=== PATIENT | female | born 1950 | race African-American/Black ===

== ENCOUNTER 2022-08-07 13:58 | Inpatient (IN) | payer MEDICARE, MEDICAID ==
[~2022-08-07] VITALS: Ht 177.8 cm; Wt 60.2 kg
[~2022-08-07 13:58] MED LIST: ATEN-60 PO; BUSP5TAB51 PO; CARB200T4 PO; LEVO75TA6 PO; PHEN100C PO
[2022-08-07 15:27] LABS: Hemoglobin 10.2 g/dL (12.2-16.2); Red Cell Distribution Width 14.5 % (11.8-14.3)
[2022-08-07 15:28] LABS: Hematocrit 30.8 % (36.0-46.0); Mean Corpuscular Hemoglobin 31.7 pg (28.0-32.0); Mean Corpuscular Hgb Conc. 33.2 g/dL (32.0-36.0); Mean Corpuscular Volume 95.7 fL (80.0-100.0); Red Blood Cells 3.22 10^6/uL (4.0-5.20)
[2022-08-07 15:43] LABS: Albumin 3.1 g/dL (3.4-5.0); Potassium 3.4 mmol/L (3.5-5.1)
[2022-08-07 15:47] LABS: BUN/Creatinine Ratio 38.9; Bilirubin, Total 0.5 mg/dL (0.2-1.0); Total Protein 5.8 g/dL (6.4-8.2)
[2022-08-07 16:40] LABS: Band Neutrophils % (manual) 0; Basophils % (manual) 0 (0.0-2.0); Blast Cells 0; Eosinophils % (manual) 0 (0-7); Metamyelocytes % 0; Myelocytes % 0; Promyelocytes % 0; Reactive Lymphocytes 0; White Blood Cell 1.4 10^3/uL (4.4-10.8)
[2022-08-07 16:42] LABS: Lymphocytes % (manual) 20 (10.0-50.0); Monocytes % (manual) 12 (0-12)
[2022-08-07] MEDS ORDERED: PIPERACILLIN-TAZOB 3.375GM 100 ML IV ONE (19:30)
[2022-08-07] MEDS ORDERED: FUROSEMIDE 40 MG/4 ML VIAL IV ONE (20:45)
[2022-08-07] MEDS ORDERED: ALBUMIN 25% 50 ML IV ONE (20:45)
[2022-08-07] MEDS ORDERED: MORPHINE SULFATE INJ 2 MG/ml SYRG IV PRN (20:45)
[2022-08-07] MEDS ORDERED: ONDANSETRON HCL 4 MG/2 ML VIAL IV PRN (20:45)
[2022-08-07] MEDS ORDERED: NITROGLYCERIN 0.4 MG SL TAB SL PRN (20:45)
[2022-08-07] MEDS ORDERED: ACETAMINOPHEN 325 MG TAB PO PRN (20:45)
[2022-08-07] MEDS: CARVEDILOL 3.125 MG TAB PO SCH (22:00)
[2022-08-07 22:03] LABS: Urine Bacteria MANY /hpf (None Seen); Urine Blood 3+ /uL (Negative); Urine Specific Gravity 1.023 (1.001-1.035); Urine WBC 4 /hpf (0 - 5)
[2022-08-07] MEDS: busPIRone HCL 10 MG TAB PO SCH (23:37)
[2022-08-07] MEDS: levETIRAcetam 500 MG TAB PO SCH (23:38)
[2022-08-08 02:08] VITALS: BP 118/64
[2022-08-08 04:56] VITALS: BP 101/54
[2022-08-08] MEDS: LEVOTHYROXINE SODIUM 25 MCG TAB PO SCH (06:12)
[2022-08-08 07:35] LABS: Albumin 3.1 g/dL (3.4-5.0); Calcium 7.6 mg/dL (8.5-10.1)
[2022-08-08 07:38] LABS: BUN/Creatinine Ratio 43.5
[2022-08-08 07:39] LABS: Bilirubin, Total 0.5 mg/dL (0.2-1.0); Total Protein 5.5 g/dL (6.4-8.2)
[2022-08-08 07:45] LABS: Basophils # (auto) 0 10 ^3/uL (0-0.2); Eosinophils # (auto) 0 10 ^3/uL (0-0.8); Lymphocytes # (auto) 0.2 10 ^3/uL (0.4-5.4); Lymphocytes % (auto) 17.9 % (10.0-50.0); Monocytes # (auto) 0.1 10 ^3/uL (0-1.3); Neutrophils # (auto) 0.9 10 ^3/uL (1.6-8.6)
[2022-08-08 07:47] LABS: Basophils % (auto) 0.3 % (0.0-2.0); Eosinophils % (auto) 0.5 % (0.0-7.0); Hematocrit 30.4 % (36.0-46.0); Hemoglobin 9.8 g/dL (12.2-16.2); Mean Corpuscular Hemoglobin 32.1 pg (28.0-32.0); Mean Corpuscular Hgb Conc. 32.2 g/dL (32.0-36.0); Mean Corpuscular Volume 99.7 fL (80.0-100.0); Monocytes % (auto) 9.3 % (0.0-12.0); Red Blood Cells 3.05 10^6/uL (4.0-5.20); Red Cell Distribution Width 14.6 % (11.8-14.3)
[2022-08-08 07:49] LABS: Nucleated Red Blood Cells % 3.3 %; White Blood Cell 1.2 10^3/uL (4.4-10.8)
[2022-08-08 08:02] LABS: Potassium 2.9 mmol/L (3.5-5.1)
[2022-08-08] MEDS ORDERED: POTASSIUM CHL 20 Meq TABLET PO ONE (08:45)
[2022-08-08] MEDS ORDERED: POTASSIUM CHLORIDE 40 MEQ, LIDOCAINE 1% (LOCAL ANESTH.) 4 ML in SODIUM CHL 0.9% 250 ML IV ONE (08:45)
[2022-08-08 09:00] VITALS: BP 80/37
[2022-08-08] MEDS: CARVEDILOL 3.125 MG TAB PO SCH ×2 (10:00→22:00)
[2022-08-08] MEDS ORDERED: ENOXAPARIN SOD 40 MG/0.4 ML SYRINGE SC SCH ×2 (10:00)
[2022-08-08] MEDS: levETIRAcetam 500 MG TAB PO SCH ×2 (11:31→22:04)
[2022-08-08] MEDS: busPIRone HCL 10 MG TAB PO SCH ×2 (11:31→22:05)
[2022-08-08] MEDS: ASPirin 81 mg TAB PO SCH (11:32)
[2022-08-08] MEDS: PANTOPRAZOLE 40 MG TAB PO SCH (11:32)
[2022-08-08] MEDS ORDERED: SODIUM CHLORIDE 0.9% 1,000 ML IV SCH (12:45)
[2022-08-08 13:00] VITALS: BP 87/57
[2022-08-08] MEDS ORDERED: cefTRIAXone 1GM/50ML D5W 50 ML IV ONE (13:00)
[2022-08-08 13:54] LABS: % Iron Saturation 75.2 % (15-50)
[2022-08-08 14:01] LABS: Ferritin > 1650.0 ng/mL (10-322)
[2022-08-08 14:16] LABS: Thyroid Stimulating Hormone 3.29 uIU/mL (0.358-3.74)
[2022-08-08 17:29] VITALS: BP 81/57
[2022-08-08] MEDS ORDERED: OMEP-260 PO (20:57)
[2022-08-08] MEDS ORDERED: ZONI100C43 PO (20:57)
[2022-08-08] MEDS ORDERED: LEVE100012 PO (20:57)
[2022-08-08] MEDS ORDERED: CARV6.2551 PO (20:57)
[2022-08-08] MEDS ORDERED: ALEN70TA74 PO (20:57)
[2022-08-08] MEDS ORDERED: CHOL20007 PO (20:59)
[2022-08-08] MEDS ORDERED: CALC-440 PO (21:03)
[2022-08-08 21:37] VITALS: BP 86/51
[2022-08-09 04:32] VITALS: BP 87/60
[2022-08-09] MEDS: LEVOTHYROXINE SODIUM 25 MCG TAB PO SCH (06:39)
[2022-08-09 07:20] LABS: Hemoglobin 10.2 g/dL (12.2-16.2)
[2022-08-09 07:21] LABS: Hematocrit 31.6 % (36.0-46.0); Mean Corpuscular Hemoglobin 31.8 pg (28.0-32.0); Mean Corpuscular Hgb Conc. 32.2 g/dL (32.0-36.0); Mean Corpuscular Volume 98.9 fL (80.0-100.0); Red Blood Cells 3.19 10^6/uL (4.0-5.20); Red Cell Distribution Width 14.8 % (11.8-14.3)
[2022-08-09 07:39] LABS: % Iron Saturation 81.5 % (15-50); Calcium 7.7 mg/dL (8.5-10.1); Potassium 3.4 mmol/L (3.5-5.1)
[2022-08-09 07:41] LABS: White Blood Cell 1.5 10^3/uL (4.4-10.8)
[2022-08-09 07:42] LABS: BUN/Creatinine Ratio 36.6; Band Neutrophils % (manual) 0; Basophils % (manual) 0 (0.0-2.0); Blast Cells 0; Metamyelocytes % 0; Myelocytes % 0; Promyelocytes % 0; Reactive Lymphocytes 0
[2022-08-09 07:45] LABS: Bilirubin, Total 0.3 mg/dL (0.2-1.0); Total Protein 5.5 g/dL (6.4-8.2)
[2022-08-09 08:25] LABS: Eosinophils % (manual) 1 (0-7); Lymphocytes % (manual) 14 (10.0-50.0); Monocytes % (manual) 6 (0-12)
[2022-08-09 09:00] VITALS: BP 86/55
[2022-08-09 09:11] LABS: Hepatitis B Surface Antibody Negative (Negative)
[2022-08-09] MEDS: ASPirin 81 mg TAB PO SCH (09:34)
[2022-08-09] MEDS: busPIRone HCL 10 MG TAB PO SCH ×2 (09:35→22:13)
[2022-08-09] MEDS: levETIRAcetam 500 MG TAB PO SCH ×2 (09:36→22:12)
[2022-08-09] MEDS: PANTOPRAZOLE 40 MG TAB PO SCH (09:36)
[2022-08-09] MEDS: CARVEDILOL 3.125 MG TAB PO SCH ×2 (10:00→22:00)
[2022-08-09 11:35] LABS: Hepatitis C Antibody Reactive (Negative)
[2022-08-09] MEDS: cefTRIAXone 1GM/50ML D5W 50 ML IV SCH (11:58)
[2022-08-09 13:00] VITALS: BP 89/54
[2022-08-09 17:00] VITALS: BP 96/57
[2022-08-09] MEDS ORDERED: D5W/SOD CHL 0.45% 1,000 ML IV ONE (19:00)
[2022-08-09] MEDS ORDERED: POTASSIUM EFFERVESENT TAB 25 MEQ PO ONE (19:00)
[2022-08-09 22:00] VITALS: BP 86/49
[2022-08-09] MEDS ORDERED: MIDAZOLAM HCL 2MG/2ML 2ml VIAL (1mg/ml) IV PRN (22:30)
[2022-08-10 05:00] VITALS: BP 103/57
[2022-08-10 05:53] LABS: Basophils # (auto) 0 10 ^3/uL (0-0.2); Eosinophils # (auto) 0 10 ^3/uL (0-0.8); Lymphocytes # (auto) 0.4 10 ^3/uL (0.4-5.4); Mean Corpuscular Hemoglobin 32.4 pg (28.0-32.0); Monocytes # (auto) 0.2 10 ^3/uL (0-1.3); Neutrophils # (auto) 0.7 10 ^3/uL (1.6-8.6)
[2022-08-10 05:55] LABS: Basophils % (auto) 0.2 % (0.0-2.0); Eosinophils % (auto) 0.7 % (0.0-7.0); Hemoglobin 9.8 g/dL (12.2-16.2); Lymphocytes % (auto) 30.2 % (10.0-50.0); Mean Corpuscular Hgb Conc. 33.8 g/dL (32.0-36.0); Mean Corpuscular Volume 95.9 fL (80.0-100.0); Monocytes % (auto) 13.7 % (0.0-12.0); Neutrophils % (auto) 55.2 % (37.0-80.0); Red Blood Cells 3.03 10^6/uL (4.0-5.20); Red Cell Distribution Width 14.6 % (11.8-14.3)
[2022-08-10] MEDS: LEVOTHYROXINE SODIUM 25 MCG TAB PO SCH (06:19)
[2022-08-10 06:23] LABS: Nucleated Red Blood Cells % 3.7 %
[2022-08-10 06:25] LABS: White Blood Cell 1.3 10^3/uL (4.4-10.8)
[2022-08-10 07:30] VITALS: BP 97/36
[2022-08-10 08:28] VITALS: BP 95/56
[2022-08-10] MEDS: CARVEDILOL 3.125 MG TAB PO SCH ×2 (09:21→22:20)
[2022-08-10] MEDS: cefTRIAXone 1GM/50ML D5W 50 ML IV SCH (09:25)
[2022-08-10] MEDS: ASPirin 81 mg TAB PO SCH (09:30)
[2022-08-10] MEDS: levETIRAcetam 500 MG TAB PO SCH ×2 (09:30→22:19)
[2022-08-10] MEDS: busPIRone HCL 10 MG TAB PO SCH ×2 (09:31→22:19)
[2022-08-10] MEDS ORDERED: ISOSORBIDE MONONITRATE ER 60 MG TAB PO SCH (10:00)
[2022-08-10] MEDS ORDERED: VANCOMYCIN HCL 125MG/5ML ORAL SOL PO ONE (14:45)
[2022-08-10 17:00] VITALS: BP 115/69
[2022-08-10] MEDS: VANCOMYCIN HCL 125MG/5ML ORAL SOL PO SCH ×2 (17:36→22:18)
[2022-08-10 22:00] VITALS: BP 111/69
[2022-08-11 05:09] VITALS: BP 109/69
[2022-08-11] MEDS: VANCOMYCIN HCL 125MG/5ML ORAL SOL PO SCH ×4 (05:35→22:16)
[2022-08-11] MEDS: LEVOTHYROXINE SODIUM 25 MCG TAB PO SCH (06:14)
[2022-08-11 07:30] VITALS: BP 109/69
[2022-08-11 07:39] LABS: Hematocrit 28.1 % (36.0-46.0); Hemoglobin 9.5 g/dL (12.2-16.2); Mean Corpuscular Hemoglobin 32.3 pg (28.0-32.0); Mean Corpuscular Hgb Conc. 33.7 g/dL (32.0-36.0); Red Blood Cells 2.94 10^6/uL (4.0-5.20)
[2022-08-11 07:42] LABS: Mean Corpuscular Volume 95.6 fL (80.0-100.0); Red Cell Distribution Width 14.8 % (11.8-14.3)
[2022-08-11 08:04] LABS: BUN/Creatinine Ratio 37.9
[2022-08-11 08:24] LABS: White Blood Cell 1.5 10^3/uL (4.4-10.8)
[2022-08-11 08:26] LABS: Basophils % (manual) 0 (0.0-2.0); Blast Cells 0; Eosinophils % (manual) 0 (0-7); Metamyelocytes % 0; Myelocytes % 0; Promyelocytes % 0; Reactive Lymphocytes 0
[2022-08-11 08:41] LABS: Band Neutrophils % (manual) 7; Lymphocytes % (manual) 35 (10.0-50.0); Monocytes % (manual) 7 (0-12)
[2022-08-11 09:00] VITALS: BP 117/69
[2022-08-11] MEDS: cefTRIAXone 1GM/50ML D5W 50 ML IV SCH (09:01)
[2022-08-11] MEDS: levETIRAcetam 500 MG TAB PO SCH ×2 (09:02→22:16)
[2022-08-11] MEDS: ASPirin 81 mg TAB PO SCH (09:02)
[2022-08-11] MEDS: FLORASTOR (S. BOULARDII) 250 MG CAP PO SCH (09:02)
[2022-08-11] MEDS: busPIRone HCL 10 MG TAB PO SCH ×2 (09:03→22:17)
[2022-08-11] MEDS: CARVEDILOL 3.125 MG TAB PO SCH ×2 (09:08→22:00)
[2022-08-11 13:00] VITALS: BP 111/69
[2022-08-11 17:00] VITALS: BP 103/60
[2022-08-11 22:00] VITALS: BP 98/46
[2022-08-12] VITALS (8 sets, daily range): BP systolic 78–138; BP diastolic 40–68
[2022-08-12] MEDS: VANCOMYCIN HCL 125MG/5ML ORAL SOL PO SCH ×4 (06:01→22:06)
[2022-08-12] MEDS: LEVOTHYROXINE SODIUM 25 MCG TAB PO SCH (07:02)
[2022-08-12] MEDS: CARVEDILOL 3.125 MG TAB PO SCH ×2 (10:00→22:07)
[2022-08-12] MEDS: FLORASTOR (S. BOULARDII) 250 MG CAP PO SCH (10:30)
[2022-08-12] MEDS: cefTRIAXone 1GM/50ML D5W 50 ML IV SCH (10:30)
[2022-08-12] MEDS: busPIRone HCL 10 MG TAB PO SCH ×2 (10:32→22:06)
[2022-08-12] MEDS: ASPirin 81 mg TAB PO SCH (10:32)
[2022-08-12] MEDS: SODIUM CHLORIDE 0.9% 1,000 ML IV SCH (15:24)
[2022-08-13] MEDS: SODIUM CHLORIDE 0.9% 1,000 ML IV SCH ×3 (01:17→20:54)
[2022-08-13 05:31] VITALS: BP 123/65
[2022-08-13] MEDS: VANCOMYCIN HCL 125MG/5ML ORAL SOL PO SCH ×4 (06:06→22:04)
[2022-08-13] MEDS: LEVOTHYROXINE SODIUM 25 MCG TAB PO SCH (06:42)
[2022-08-13 09:00] VITALS: BP 98/58
[2022-08-13] MEDS: FLORASTOR (S. BOULARDII) 250 MG CAP PO SCH (09:37)
[2022-08-13] MEDS: cefTRIAXone 1GM/50ML D5W 50 ML IV SCH (09:37)
[2022-08-13] MEDS: ASPirin 81 mg TAB PO SCH (09:38)
[2022-08-13] MEDS: busPIRone HCL 10 MG TAB PO SCH ×2 (09:39→22:04)
[2022-08-13] MEDS: CARVEDILOL 3.125 MG TAB PO SCH ×2 (09:39→22:02)
[2022-08-13 17:00] VITALS: BP 119/61
[2022-08-13 22:00] VITALS: BP 125/70
[2022-08-13] MEDS: LACOSAMIDE 50 MG TAB PO SCH (22:10)
[2022-08-13 23:02] VITALS: BP 108/57
[2022-08-14] VITALS (7 sets, daily range): BP systolic 104–110; BP diastolic 54–67
[2022-08-14] MEDS: LEVOTHYROXINE SODIUM 25 MCG TAB PO SCH (06:03)
[2022-08-14] MEDS: VANCOMYCIN HCL 125MG/5ML ORAL SOL PO SCH ×3 (06:03→17:41)
[2022-08-14] MEDS: SODIUM CHLORIDE 0.9% 1,000 ML IV SCH ×2 (06:45→15:56)
[2022-08-14] MEDS: ASPirin 81 mg TAB PO SCH (08:56)
[2022-08-14] MEDS: LACOSAMIDE 50 MG TAB PO SCH (08:56)
[2022-08-14] MEDS: FLORASTOR (S. BOULARDII) 250 MG CAP PO SCH (08:56)
[2022-08-14] MEDS: cefTRIAXone 1GM/50ML D5W 50 ML IV SCH (08:56)
[2022-08-14] MEDS: busPIRone HCL 10 MG TAB PO SCH (08:57)
[2022-08-14] MEDS: CARVEDILOL 3.125 MG TAB PO SCH (09:04)
== END 2022-08-14 20:00 | DRG 660 ==
LOC: ER 13:58 → TELE 20:43 → TELE-WESTW 08-08 01:54
PROVIDERS: ADMIT Nurse Practitioner; ATTEND Family Medicine
PROC: 4B02XSZ Measurement of Cardiac Pacemaker, External Approach (ICD-10-PCS; principal; 2022-08-09)
DX: D61.818 Other pancytopenia (principal); G93.41 Metabolic encephalopathy; A04.72 Enterocolitis due to Clostridium difficile, not specified as recurrent; N17.9 Acute kidney failure, unspecified; R64 Cachexia; E43 Unspecified severe protein-calorie malnutrition; I95.9 Hypotension, unspecified; I13.0 Hypertensive heart and chronic kidney disease with heart failure and stage 1 through stage 4 chronic kidney disease, or unspecified chronic kidney disease; E87.0 Hyperosmolality and hypernatremia; I50.9 Heart failure, unspecified; G40.409 Other generalized epilepsy and epileptic syndromes, not intractable, without status epilepticus; X58.XXXA Exposure to other specified factors, initial encounter; R62.7 Adult failure to thrive; S90.121A Contusion of right lesser toe(s) without damage to nail, initial encounter; S90.31XA Contusion of right foot, initial encounter; B96.20 Unspecified Escherichia coli [E. coli] as the cause of diseases classified elsewhere; E78.5 Hyperlipidemia, unspecified; Z20.822 Contact with and (suspected) exposure to COVID-19; M81.0 Age-related osteoporosis without current pathological fracture; N18.9 Chronic kidney disease, unspecified; K21.9 Gastro-esophageal reflux disease without esophagitis; E03.9 Hypothyroidism, unspecified; E87.6 Hypokalemia; I89.0 Lymphedema, not elsewhere classified; Z90.49 Acquired absence of other specified parts of digestive tract; Z68.1 Body mass index [BMI] 19.9 or less, adult; Y93.89 Activity, other specified; Y92.89 Other specified places as the place of occurrence of the external cause; Y99.8 Other external cause status; Z87.891 Personal history of nicotine dependence; Z95.0 Presence of cardiac pacemaker; R74.01 Elevation of levels of liver transaminase levels
CPT/HCPCS: 36415; 71045; 73630; 73700; 74176; 76705; 80048; 80053; 81001; 82140; 82607; 82728; 83010; 83540; 83550; 83605; 83615; 83880; 84436; 84443; 84484; 85007; 85025; 85027; 85045; 86038; 86706; 86803; 87040; 87086; 87088; 87186; 87340; 87493; 93005; 93306; 93925; 93970; 96365; 96366; G0378; J0696; J2001; J2405; J2543

== ENCOUNTER 2023-04-24 21:00 | Inpatient (IN) | payer MEDICARE, MEDICAID ==
[~2023-04-24] VITALS: Ht 167.6 cm; Wt 58.3 kg
[~2023-04-24 21:00] MED LIST changes: +ALEN70TA74 PO; +CALC-440 PO; +CARV6.2551 PO; +CHOL20007 PO; +LEVE100012 PO; +OMEP1CAP70 PO; +ZONI100C43 PO
[2023-04-24] MEDS: NOREPINEPHRINE 8 MG/250ML KIT 250 ML IV SCH ×2 (21:14→23:10)
[2023-04-24] MEDS ORDERED: SODIUM CHLORIDE 0.9% 1,000 ML IV ONE (21:30)
[2023-04-24 21:46] LABS: Basophils # (auto) 0 10 ^3/uL (0-0.2); Eosinophils # (auto) 0 10 ^3/uL (0-0.8); Eosinophils % (auto) 0.2 % (0.0-7.0); Hematocrit 13.6 % (36.0-46.0); Lymphocytes # (auto) 0.1 10 ^3/uL (0.4-5.4); Lymphocytes % (auto) 11.6 % (10.0-50.0); Mean Corpuscular Hemoglobin 29.7 pg (28.0-32.0); Mean Corpuscular Hgb Conc. 32.6 g/dL (32.0-36.0); Mean Corpuscular Volume 91.1 fL (80.0-100.0); Monocytes # (auto) 0 10 ^3/uL (0-1.3); Monocytes % (auto) 4.5 % (0.0-12.0); Neutrophils # (auto) 0.6 10 ^3/uL (1.6-8.6); Neutrophils % (auto) 82.7 % (37.0-80.0); Red Blood Cells 1.49 10^6/uL (4.0-5.20)
[2023-04-24 21:58] LABS: Albumin 2.5 g/dL (3.4-5.0); INR 1.72 (0.9-1.15); Partial Thromboplastin Time 38.9 sec (24.6-33.4); Potassium 3.4 mmol/L (3.5-5.1)
[2023-04-24] MEDS: EPINEPHrine HCL 250 ML IV SCH ×2 (22:00→23:14)
[2023-04-24 22:01] LABS: BUN/Creatinine Ratio 25.2 (10.0-20.0); Bilirubin, Total 0.8 mg/dL (0.2-1.0); Total Protein 5.7 g/dL (6.4-8.2)
[2023-04-24 22:07] LABS: Nucleated Red Blood Cells % 24.3 %
[2023-04-24 22:09] LABS: Hemoglobin 4.4 g/dL (12.2-16.2)
[2023-04-24 22:11] LABS: White Blood Cell 0.7 10^3/uL (4.4-10.8)
[2023-04-24] MEDS ORDERED: ETOMIDATE (2MG/ML) 20ML VIAL IV ONE (22:46)
[2023-04-24] MEDS ORDERED: ROCURONIUM 10MG/ML 10ML VIAL IV ONE (22:46)
[2023-04-24] MEDS ORDERED: MIDAZOLAM HCL 2MG/2ML 2ml VIAL (1mg/ml) ONE (22:50)
[2023-04-24] MEDS ORDERED: NOREPINEPHRINE 8 MG/250ML KIT 250 ML IV ONE (22:52)
[2023-04-24 23:00] VITALS: BP 41/21
[2023-04-24] MEDS ORDERED: EPINEPHrine HCL 1 MG/10 ML SYRG ONE (23:13)
[2023-04-25] VITALS (83 sets, daily range): BP systolic 57–140; BP diastolic 25–86
[2023-04-25 00:26] LABS: Urine Bacteria MANY /hpf (None Seen); Urine Blood 1+ /uL (Negative); Urine Mucus FEW (None Seen); Urine WBC 312 /hpf (0 - 5); Urine WBC Clumps PRESENT /hpf (None Seen)
[2023-04-25] MEDS ORDERED: MIDAZOLAM HCL 5 MG/ML-1ML VIAL IV ONE (00:45)
[2023-04-25] MEDS ORDERED: ROCURONIUM 10MG/ML 10ML VIAL IV ONE (00:45)
[2023-04-25] MEDS ORDERED: ETOMIDATE (2MG/ML) 20ML VIAL IV ONE (00:45)
[2023-04-25] MEDS: MIDAZOLAM DRIP 50 mg/50mL 50 ML IV SCH ×3 (02:15→23:24)
[2023-04-25] MEDS ORDERED: cefTRIAXone 1GM/50ML D5W 50 ML IV ONE (02:30)
[2023-04-25] MEDS ORDERED: VANCOMYCIN 1GM/250ML 250 ML IV ONE (02:30)
[2023-04-25] MEDS ORDERED: PIPERACILLIN-TAZO 4.5GM 100 ML IV ONE (02:30)
[2023-04-25] MEDS ORDERED: SODIUM BICARBONATE 8.4 % INJ 50ML VIAL IV ONE ×2 (02:30→15:07)
[2023-04-25] MEDS ORDERED: methylPREDNISolone SOD SUCC 125 MG/2 ML VL IV ONE (02:30)
[2023-04-25] MEDS ORDERED: MORPHINE SULFATE INJ 2 MG/ml SYRG IV PRN (03:15)
[2023-04-25] MEDS ORDERED: FILGRASTIM(TBO) 480 MCG/0.8 ML SYRG SC ONE (03:15)
[2023-04-25] MEDS ORDERED: ONDANSETRON HCL 4 MG/2 ML VIAL IV PRN (03:15)
[2023-04-25] MEDS ORDERED: ACETAMINOPHEN 325 MG TAB PO PRN (03:15)
[2023-04-25] MEDS ORDERED: NITROGLYCERIN 0.4 MG SL TAB SL PRN (03:15)
[2023-04-25] MEDS ORDERED: D5W/SOD CHL 0.45% 1,000 ML IV SCH (03:15)
[2023-04-25 07:12] LABS: Basophils # (auto) 0 10 ^3/uL (0-0.2); Eosinophils # (auto) 0 10 ^3/uL (0-0.8); Hemoglobin 11.9 g/dL (12.2-16.2); Lymphocytes # (auto) 0.1 10 ^3/uL (0.4-5.4); Monocytes # (auto) 0 10 ^3/uL (0-1.3)
[2023-04-25 07:14] LABS: Basophils % (auto) 1.2 % (0.0-2.0); Hematocrit 35.4 % (36.0-46.0); Lymphocytes % (auto) 14.1 % (10.0-50.0); Mean Corpuscular Hemoglobin 30.6 pg (28.0-32.0); Mean Corpuscular Hgb Conc. 33.6 g/dL (32.0-36.0); Mean Corpuscular Volume 90.9 fL (80.0-100.0); Monocytes % (auto) 5.2 % (0.0-12.0); Neutrophils # (auto) 0.4 10 ^3/uL (1.6-8.6); Neutrophils % (auto) 78.5 % (37.0-80.0); Red Blood Cells 3.89 10^6/uL (4.0-5.20); Red Cell Distribution Width 15.6 % (11.8-14.3)
[2023-04-25 07:23] LABS: Albumin 2.2 g/dL (3.4-5.0); Calcium 6.6 mg/dL (8.5-10.1); Potassium 3.3 mmol/L (3.5-5.1)
[2023-04-25 07:28] LABS: Bilirubin, Total 1.1 mg/dL (0.2-1.0); Total Protein 5.2 g/dL (6.4-8.2)
[2023-04-25 07:30] LABS: Nucleated Red Blood Cells % 43.9 %
[2023-04-25 07:32] LABS: White Blood Cell 0.5 10^3/uL (4.4-10.8)
[2023-04-25] MEDS: NOREPINEPHRINE 8 MG/250ML KIT 250 ML IV SCH ×4 (08:03→23:14)
[2023-04-25] MEDS: PANTOPRAZOLE 40 MG/10 ML VIAL INJ IV SCH (09:59)
[2023-04-25] MEDS: AZITHROMYCIN 500MG/ 250ML 250 ML IV SCH ×2 (10:00→10:04)
[2023-04-25] MEDS: VASOPRESSIN 40 UNITS in D5W 5% 198 ML IV SCH ×4 (11:30→18:58)
[2023-04-25] MEDS: POTASSIUM CHL 20MEQ/100ML 100 ML IV SCH ×2 (11:58→14:22)
[2023-04-25] MEDS ORDERED: FUROSEMIDE 100 MG/10ML VIAL IV ONE (12:15)
[2023-04-25] MEDS: EPINEPHrine HCL 250 ML IV SCH (14:24)
[2023-04-25 15:14] LABS: Hepatitis B Surface Antibody Negative (Negative)
[2023-04-25] MEDS: SODIUM BICARB 50ML SYR 75 ML in D5W/SOD CHL 0.45% 1,000 ML IV SCH ×2 (15:25→18:34)
[2023-04-25] MEDS ORDERED: MEROPENEM 1GM IVPB 100 ML IV ONE (15:30)
[2023-04-25] MEDS ORDERED: VANCOMYCIN PER PHARMACY 0 MG IV SCH (15:30)
[2023-04-25 17:53] LABS: Potassium 3.9 mmol/L (3.5-5.1)
[2023-04-25 18:01] LABS: Calcium 5.9 mg/dL (8.5-10.1)
[2023-04-25] MEDS ORDERED: SODIUM BICARBONATE 8.4% INJ 50ML SYRINGE ONE ×2 (18:34→18:40)
[2023-04-25] MEDS ORDERED: VASOPRESSIN 20 UNIT/ML ONE (18:50)
[2023-04-25] MEDS ORDERED: CALCIUM GLUC 1,000mg/50ml-NS 50 ML IV ONE (19:30)
[2023-04-26] VITALS (106 sets, daily range): BP systolic 74–139; BP diastolic 38–76
[2023-04-26] MEDS: VASOPRESSIN 40 UNITS in D5W 5% 198 ML IV SCH ×7 (00:50→20:50)
[2023-04-26 04:12] LABS: Hematocrit 33.7 % (36.0-46.0); Hemoglobin 11.8 g/dL (12.2-16.2)
[2023-04-26 04:15] LABS: Mean Corpuscular Hemoglobin 30.2 pg (28.0-32.0); Mean Corpuscular Hgb Conc. 34.9 g/dL (32.0-36.0); Mean Corpuscular Volume 86.4 fL (80.0-100.0); Red Cell Distribution Width 15.8 % (11.8-14.3); White Blood Cell 4.1 10^3/uL (4.4-10.8)
[2023-04-26 04:45] LABS: Basophils % (manual) 0 (0.0-2.0); Blast Cells 0; Eosinophils % (manual) 0 (0-7); Promyelocytes % 0; Reactive Lymphocytes 0
[2023-04-26] MEDS: MEROPENEM 500MG IVPB 50 ML IV SCH ×2 (04:47→17:56)
[2023-04-26] MEDS: NOREPINEPHRINE 8 MG/250ML KIT 250 ML IV SCH ×3 (05:10→19:26)
[2023-04-26 05:22] LABS: Albumin 2.1 g/dL (3.4-5.0); Calcium 6.2 mg/dL (8.5-10.1); Potassium 3.8 mmol/L (3.5-5.1)
[2023-04-26 05:26] LABS: BUN/Creatinine Ratio 25.6 (10.0-20.0); Bilirubin, Total 0.6 mg/dL (0.2-1.0); Total Protein 5.2 g/dL (6.4-8.2)
[2023-04-26] MEDS: SODIUM BICARB 50ML SYR 75 ML in D5W/SOD CHL 0.45% 1,000 ML IV SCH ×2 (06:34→23:23)
[2023-04-26 06:58] LABS: Band Neutrophils % (manual) 2; Lymphocytes % (manual) 6 (10.0-50.0); Metamyelocytes % 1; Monocytes % (manual) 4 (0-12); Myelocytes % 3
[2023-04-26] MEDS ORDERED: cefTRIAXone 1GM/50ML D5W 50 ML IV SCH (09:00)
[2023-04-26] MEDS: MIDAZOLAM DRIP 50 mg/50mL 50 ML IV SCH ×2 (09:38→22:49)
[2023-04-26] MEDS ORDERED: FILGRASTIM(TBO) 480 MCG/0.8 ML SYRG SC SCH (10:00)
[2023-04-26] MEDS: PANTOPRAZOLE 40 MG/10 ML VIAL INJ IV SCH (10:54)
[2023-04-26] MEDS ORDERED: Nepro With Carb Steady 1 Liter Bottle GT SCH (12:30)
[2023-04-26] MEDS ORDERED: DEXTROSE (50%) 50ML SYRG IV PRN (12:45)
[2023-04-26] MEDS: ACCU-CHEK COMFORT CURVE STRIP VI SCH (13:29)
[2023-04-26] MEDS: InsuLIN REG 1unit/0.01ml Soln (100units/ml) SC SCH ×2 (13:33→18:17)
[2023-04-26] MEDS ORDERED: VANCOMYCIN 750mg/250ml 250 ML IV ONE (16:00)
[2023-04-26] MEDS ORDERED: LORazepam 2MG/ML-1ML VIAL IV PRN (21:15)
[2023-04-26 22:27] LABS: Cholesterol 81 mg/dL (< 200)
[2023-04-26 22:29] LABS: HDL Cholesterol 40 mg/dL (40-59); LDL Cholesterol 18 mg/dL (< 100); Triglycerides 55 mg/dL (< 150)
[2023-04-26] MEDS: LACOSAMIDE 100 MG in SODIUM CHL 0.9% 50 ML IV SCH (22:50)
[2023-04-26] MEDS: MUPIROCIN 2% OINT 15gm or 22gm FOR MRSA NARES EACHNOSTRI SCH (22:50)
[2023-04-26] MEDS ORDERED: SODIUM BICARBONATE 8.4 % INJ 50ML VIAL IV ONE (23:14)
[2023-04-27] VITALS (108 sets, daily range): BP systolic 84–140; BP diastolic 46–71
[2023-04-27] MEDS: ACCU-CHEK COMFORT CURVE STRIP VI SCH ×4 (00:05→17:52)
[2023-04-27] MEDS: VASOPRESSIN 40 UNITS in D5W 5% 198 ML IV SCH ×8 (00:10→23:30)
[2023-04-27] MEDS: EPINEPHrine HCL 250 ML IV SCH (00:45)
[2023-04-27] MEDS: NOREPINEPHRINE 8 MG/250ML KIT 250 ML IV SCH ×2 (02:50→12:27)
[2023-04-27 03:18] LABS: Red Cell Distribution Width 16.4 % (11.8-14.3)
[2023-04-27 03:19] LABS: Hematocrit 34.3 % (36.0-46.0); Hemoglobin 11.9 g/dL (12.2-16.2); Mean Corpuscular Hgb Conc. 34.6 g/dL (32.0-36.0); Mean Corpuscular Volume 86.8 fL (80.0-100.0); Red Blood Cells 3.95 10^6/uL (4.0-5.20); White Blood Cell 11.6 10^3/uL (4.4-10.8)
[2023-04-27 03:35] LABS: BUN/Creatinine Ratio 25.8 (10.0-20.0); Calcium 6.3 mg/dL (8.5-10.1); Potassium 3.4 mmol/L (3.5-5.1)
[2023-04-27 03:37] LABS: Bilirubin, Total 0.6 mg/dL (0.2-1.0); Total Protein 5.4 g/dL (6.4-8.2)
[2023-04-27 03:47] LABS: Basophils % (manual) 0 (0.0-2.0); Blast Cells 0; Eosinophils % (manual) 0 (0-7); Metamyelocytes % 0; Promyelocytes % 0; Reactive Lymphocytes 0
[2023-04-27] MEDS: MEROPENEM 500MG IVPB 50 ML IV SCH ×2 (04:25→17:11)
[2023-04-27] MEDS: InsuLIN REG 1unit/0.01ml Soln (100units/ml) SC SCH ×4 (05:46→17:52)
[2023-04-27 06:44] LABS: Band Neutrophils % (manual) 66; Lymphocytes % (manual) 9 (10.0-50.0); Monocytes % (manual) 3 (0-12); Myelocytes % 1
[2023-04-27] MEDS: MIDAZOLAM DRIP 50 mg/50mL 50 ML IV SCH ×3 (07:30→20:37)
[2023-04-27] MEDS: SODIUM BICARB 50ML SYR 75 ML in D5W/SOD CHL 0.45% 1,000 ML IV SCH (09:30)
[2023-04-27] MEDS: PANTOPRAZOLE 40 MG/10 ML VIAL INJ IV SCH (09:59)
[2023-04-27] MEDS: LACOSAMIDE 100 MG in SODIUM CHL 0.9% 50 ML IV SCH ×2 (10:47→21:46)
[2023-04-27] MEDS: MUPIROCIN 2% OINT 15gm or 22gm FOR MRSA NARES EACHNOSTRI SCH ×2 (11:46→21:45)
[2023-04-27] MEDS ORDERED: POTASSIUM CHL 20MEQ/100ML 100 ML IV ONE (12:45)
[2023-04-27] MEDS: ALBUMIN 25% 100 ML IV SCH ×2 (15:44→21:44)
[2023-04-27] MEDS: D5W 5% 1,000 ML IV SCH (18:12)
[2023-04-27] MEDS ORDERED: VANCOMYCIN 500 MG in D5W 5% 100 ML IV ONE (23:00)
[2023-04-28] VITALS (103 sets, daily range): BP systolic 84–133; BP diastolic 41–80
[2023-04-28] MEDS: ACCU-CHEK COMFORT CURVE STRIP VI SCH ×5 (00:12→23:35)
[2023-04-28] MEDS: InsuLIN REG 1unit/0.01ml Soln (100units/ml) SC SCH ×5 (00:15→23:34)
[2023-04-28] MEDS: EPINEPHrine HCL 250 ML IV SCH (00:45)
[2023-04-28] MEDS: VASOPRESSIN 40 UNITS in D5W 5% 198 ML IV SCH ×7 (02:50→22:50)
[2023-04-28] MEDS: D5W 5% 1,000 ML IV SCH ×3 (04:13→20:40)
[2023-04-28] MEDS: MEROPENEM 500MG IVPB 50 ML IV SCH ×2 (04:13→16:11)
[2023-04-28 04:24] LABS: Albumin 2.8 g/dL (3.4-5.0); Calcium 6.1 mg/dL (8.5-10.1); Potassium 3.1 mmol/L (3.5-5.1)
[2023-04-28 04:27] LABS: BUN/Creatinine Ratio 27.5 (10.0-20.0); Total Protein 5.3 g/dL (6.4-8.2)
[2023-04-28 04:58] LABS: Hemoglobin 8.8 g/dL (12.2-16.2)
[2023-04-28 05:00] LABS: Hematocrit 24.8 % (36.0-46.0); Mean Corpuscular Hemoglobin 31.4 pg (28.0-32.0); Mean Corpuscular Hgb Conc. 35.4 g/dL (32.0-36.0); Mean Corpuscular Volume 88.7 fL (80.0-100.0); Red Blood Cells 2.79 10^6/uL (4.0-5.20); White Blood Cell 8.6 10^3/uL (4.4-10.8)
[2023-04-28 05:06] LABS: Basophils % (manual) 0 (0.0-2.0); Blast Cells 0; Eosinophils % (manual) 0 (0-7); Myelocytes % 0; Promyelocytes % 0; Reactive Lymphocytes 0
[2023-04-28] MEDS: ALBUMIN 25% 100 ML IV SCH ×3 (05:58→21:40)
[2023-04-28] MEDS: NOREPINEPHRINE 8 MG/250ML KIT 250 ML IV SCH (07:39)
[2023-04-28 09:09] LABS: Band Neutrophils % (manual) 12; Lymphocytes % (manual) 8 (10.0-50.0); Metamyelocytes % 3; Monocytes % (manual) 6 (0-12)
[2023-04-28] MEDS: MIDAZOLAM DRIP 50 mg/50mL 50 ML IV SCH ×2 (10:15→20:15)
[2023-04-28] MEDS: MUPIROCIN 2% OINT 15gm or 22gm FOR MRSA NARES EACHNOSTRI SCH ×2 (10:40→21:41)
[2023-04-28] MEDS: LACOSAMIDE 100 MG in SODIUM CHL 0.9% 50 ML IV SCH ×2 (10:41→21:41)
[2023-04-28] MEDS: PANTOPRAZOLE 40 MG/10 ML VIAL INJ IV SCH (10:41)
[2023-04-28] MEDS: POTASSIUM CHL 20MEQ/100ML 100 ML IV SCH ×2 (12:57→14:31)
[2023-04-29] VITALS (101 sets, daily range): BP systolic 80–146; BP diastolic 46–96
[2023-04-29] MEDS: EPINEPHrine HCL 250 ML IV SCH (00:45)
[2023-04-29] MEDS: VASOPRESSIN 40 UNITS in D5W 5% 198 ML IV SCH ×7 (02:10→22:10)
[2023-04-29] MEDS: D5W 5% 1,000 ML IV SCH ×2 (03:32→08:09)
[2023-04-29] MEDS: MEROPENEM 500MG IVPB 50 ML IV SCH (03:32)
[2023-04-29 04:38] LABS: Red Blood Cells 2.58 10^6/uL (4.0-5.20); White Blood Cell 8.1 10^3/uL (4.4-10.8)
[2023-04-29 04:40] LABS: Mean Corpuscular Hgb Conc. 34.9 g/dL (32.0-36.0); Mean Corpuscular Volume 88.9 fL (80.0-100.0); Red Cell Distribution Width 15.9 % (11.8-14.3)
[2023-04-29 04:55] LABS: Basophils % (manual) 0 (0.0-2.0); Blast Cells 0; Eosinophils % (manual) 0 (0-7); Metamyelocytes % 0; Monocytes % (manual) 0 (0-12); Myelocytes % 0; Promyelocytes % 0; Reactive Lymphocytes 0
[2023-04-29 04:56] LABS: Calcium 6.5 mg/dL (8.5-10.1); Potassium 3.3 mmol/L (3.5-5.1)
[2023-04-29] MEDS: ALBUMIN 25% 100 ML IV SCH ×3 (05:15→21:43)
[2023-04-29] MEDS: InsuLIN REG 1unit/0.01ml Soln (100units/ml) SC SCH ×4 (05:30→23:38)
[2023-04-29] MEDS: ACCU-CHEK COMFORT CURVE STRIP VI SCH ×4 (05:31→23:39)
[2023-04-29] MEDS: MIDAZOLAM DRIP 50 mg/50mL 50 ML IV SCH ×2 (06:15→15:43)
[2023-04-29 08:23] LABS: Band Neutrophils % (manual) 1; Lymphocytes % (manual) 9 (10.0-50.0)
[2023-04-29] MEDS: PANTOPRAZOLE 40 MG/10 ML VIAL INJ IV SCH (09:59)
[2023-04-29] MEDS: MUPIROCIN 2% OINT 15gm or 22gm FOR MRSA NARES EACHNOSTRI SCH ×2 (10:00→21:44)
[2023-04-29] MEDS: LACOSAMIDE 100 MG in SODIUM CHL 0.9% 50 ML IV SCH ×2 (10:08→22:27)
[2023-04-29] MEDS ORDERED: VANCOMYCIN 500 MG in D5W 5% 100 ML IV ONE (14:30)
[2023-04-29] MEDS ORDERED: D5W 5% 1,000 ML IV SCH (14:45)
[2023-04-29] MEDS ORDERED: POTASSIUM EFFERVESENT TAB 25 MEQ GT ONE (14:45)
[2023-04-29] MEDS: SOD CHL 0.45% 1,000 ML IV SCH (16:45)
[2023-04-30] VITALS (96 sets, daily range): BP systolic 84–141; BP diastolic 37–89
[2023-04-30] MEDS: NOREPINEPHRINE 8 MG/250ML KIT 250 ML IV SCH ×2 (00:45→19:21)
[2023-04-30] MEDS: VASOPRESSIN 40 UNITS in D5W 5% 198 ML IV SCH ×5 (01:30→12:13)
[2023-04-30] MEDS: MIDAZOLAM DRIP 50 mg/50mL 50 ML IV SCH ×3 (02:15→22:15)
[2023-04-30 03:29] LABS: Basophils # (auto) 0 10 ^3/uL (0-0.2); Basophils % (auto) 0.3 % (0.0-2.0); Eosinophils # (auto) 0 10 ^3/uL (0-0.8); Hemoglobin 8.3 g/dL (12.2-16.2); Nucleated Red Blood Cells % 0.3 %
[2023-04-30 03:33] LABS: Eosinophils % (auto) 0.4 % (0.0-7.0); Hematocrit 24.4 % (36.0-46.0); Lymphocytes # (auto) 0.3 10 ^3/uL (0.4-5.4); Lymphocytes % (auto) 4.4 % (10.0-50.0); Mean Corpuscular Hemoglobin 30.5 pg (28.0-32.0); Mean Corpuscular Hgb Conc. 34.1 g/dL (32.0-36.0); Mean Corpuscular Volume 89.4 fL (80.0-100.0); Monocytes # (auto) 0.2 10 ^3/uL (0-1.3); Monocytes % (auto) 2.6 % (0.0-12.0); Neutrophils % (auto) 92.3 % (37.0-80.0); Red Blood Cells 2.73 10^6/uL (4.0-5.20); Red Cell Distribution Width 15.9 % (11.8-14.3); White Blood Cell 7.6 10^3/uL (4.4-10.8)
[2023-04-30 03:51] LABS: Albumin 3.1 g/dL (3.4-5.0); Calcium 6.6 mg/dL (8.5-10.1); Potassium 3.7 mmol/L (3.5-5.1)
[2023-04-30 03:54] LABS: Bilirubin, Total 1.7 mg/dL (0.2-1.0); Total Protein 5.4 g/dL (6.4-8.2)
[2023-04-30] MEDS: ALBUMIN 25% 100 ML IV SCH (05:26)
[2023-04-30] MEDS: SOD CHL 0.45% 1,000 ML IV SCH (05:28)
[2023-04-30] MEDS: InsuLIN REG 1unit/0.01ml Soln (100units/ml) SC SCH ×3 (05:32→17:05)
[2023-04-30] MEDS: ACCU-CHEK COMFORT CURVE STRIP VI SCH ×3 (05:32→17:04)
[2023-04-30] MEDS: PANTOPRAZOLE 40 MG/10 ML VIAL INJ IV SCH (11:03)
[2023-04-30] MEDS: LACOSAMIDE 100 MG in SODIUM CHL 0.9% 50 ML IV SCH ×2 (11:03→22:34)
[2023-04-30] MEDS: CEFTRIAXONE SODIUM 2 GM in D5W 5% 100 ML IV SCH (11:03)
[2023-04-30] MEDS: MUPIROCIN 2% OINT 15gm or 22gm FOR MRSA NARES EACHNOSTRI SCH ×2 (11:03→22:00)
[2023-04-30] MEDS: VANCOMYCIN 750mg/250ml 250 ML IV SCH (12:12)
[2023-04-30] MEDS: MIDODRINE HCL 10 MG TAB PO SCH (17:22)
[2023-04-30] MEDS ORDERED: Nepro With Carb Steady 1 Liter Bottle GT SCH (18:15)
[2023-04-30] MEDS: D5W/SOD CHL 0.45%/KCL 20MEQ 1,000 ML IV SCH (20:00)
[2023-04-30] MEDS ORDERED: Jevity 1.2 Cal/Fiber 1 Liter GT SCH (20:00)
[2023-04-30] MEDS ORDERED: IPRATROPIUM BROM 0.5 MG/2.5ML INH SOL NEB ONE (20:45)
[2023-04-30] MEDS ORDERED: ALBUTEROL SULF 2.5 MG/0.5ML(0.5%) NEB SOLN NEB ONE (20:45)
[2023-04-30] MEDS ORDERED: ALBUTEROL SULF 2.5 MG/0.5ML(0.5%) NEB SOLN ONE (20:48)
[2023-04-30] MEDS ORDERED: IPRATROPIUM BROM 0.5 MG/2.5ML INH SOL ONE (20:48)
[2023-05-01] VITALS (80 sets, daily range): BP systolic 92–142; BP diastolic 45–65
[2023-05-01] MEDS: ACCU-CHEK COMFORT CURVE STRIP VI SCH ×5 (00:27→23:45)
[2023-05-01 04:35] LABS: Hemoglobin 9.1 g/dL (12.2-16.2)
[2023-05-01 04:39] LABS: Hematocrit 26.4 % (36.0-46.0); Mean Corpuscular Hgb Conc. 34.4 g/dL (32.0-36.0); Mean Corpuscular Volume 90.1 fL (80.0-100.0); Red Blood Cells 2.93 10^6/uL (4.0-5.20); Red Cell Distribution Width 15.8 % (11.8-14.3); White Blood Cell 9.3 10^3/uL (4.4-10.8)
[2023-05-01 04:50] LABS: Basophils % (manual) 0 (0.0-2.0); Blast Cells 0; Metamyelocytes % 0; Myelocytes % 0; Promyelocytes % 0; Reactive Lymphocytes 0
[2023-05-01 04:54] LABS: Calcium 6.7 mg/dL (8.5-10.1); Potassium 3.7 mmol/L (3.5-5.1)
[2023-05-01] MEDS: InsuLIN REG 1unit/0.01ml Soln (100units/ml) SC SCH ×5 (05:41→23:45)
[2023-05-01] MEDS: MIDODRINE HCL 10 MG TAB PO SCH ×3 (05:50→18:18)
[2023-05-01] MEDS: MIDAZOLAM DRIP 50 mg/50mL 50 ML IV SCH (08:15)
[2023-05-01 09:23] LABS: Band Neutrophils % (manual) 2; Eosinophils % (manual) 1 (0-7); Lymphocytes % (manual) 5 (10.0-50.0); Monocytes % (manual) 2 (0-12)
[2023-05-01] MEDS: PANTOPRAZOLE 40 MG/10 ML VIAL INJ IV SCH (09:28)
[2023-05-01] MEDS: D5W/SOD CHL 0.45%/KCL 20MEQ 1,000 ML IV SCH (09:28)
[2023-05-01] MEDS: CEFTRIAXONE SODIUM 2 GM in D5W 5% 100 ML IV SCH (09:54)
[2023-05-01] MEDS: LACOSAMIDE 100 MG in SODIUM CHL 0.9% 50 ML IV SCH ×2 (11:07→21:47)
[2023-05-01] MEDS: MUPIROCIN 2% OINT 15gm or 22gm FOR MRSA NARES EACHNOSTRI SCH (11:12)
[2023-05-01] MEDS: VANCOMYCIN 750mg/250ml 250 ML IV SCH (12:22)
[2023-05-02] VITALS (18 sets, daily range): BP systolic 96–148; BP diastolic 46–68
[2023-05-02 04:35] LABS: Hemoglobin 10.2 g/dL (12.2-16.2); Mean Corpuscular Hemoglobin 31.1 pg (28.0-32.0); Red Blood Cells 3.28 10^6/uL (4.0-5.20)
[2023-05-02 04:37] LABS: Hematocrit 30.2 % (36.0-46.0); Mean Corpuscular Hgb Conc. 33.7 g/dL (32.0-36.0); Red Cell Distribution Width 16.1 % (11.8-14.3); White Blood Cell 9.3 10^3/uL (4.4-10.8)
[2023-05-02 04:46] LABS: Basophils % (manual) 0 (0.0-2.0); Blast Cells 0; Eosinophils % (manual) 0 (0-7); Metamyelocytes % 0; Myelocytes % 0; Promyelocytes % 0; Reactive Lymphocytes 0
[2023-05-02] MEDS: D5W/SOD CHL 0.45%/KCL 20MEQ 1,000 ML IV SCH (04:54)
[2023-05-02] MEDS: MIDODRINE HCL 10 MG TAB PO SCH ×3 (04:54→17:29)
[2023-05-02 04:58] LABS: BUN/Creatinine Ratio 29.9 (10.0-20.0); Calcium 6.9 mg/dL (8.5-10.1); Potassium 3.6 mmol/L (3.5-5.1)
[2023-05-02] MEDS: ACCU-CHEK COMFORT CURVE STRIP VI SCH ×3 (05:48→17:29)
[2023-05-02] MEDS: InsuLIN REG 1unit/0.01ml Soln (100units/ml) SC SCH ×3 (05:48→17:29)
[2023-05-02 07:57] LABS: Band Neutrophils % (manual) 9; Lymphocytes % (manual) 6 (10.0-50.0); Monocytes % (manual) 3 (0-12)
[2023-05-02] MEDS: PANTOPRAZOLE 40 MG/10 ML VIAL INJ IV SCH (09:16)
[2023-05-02] MEDS: CEFTRIAXONE SODIUM 2 GM in D5W 5% 100 ML IV SCH (09:17)
[2023-05-02] MEDS: LACOSAMIDE 100 MG in SODIUM CHL 0.9% 50 ML IV SCH ×2 (10:18→23:00)
[2023-05-02] MEDS: VANCOMYCIN 750mg/250ml 250 ML IV SCH (10:51)
[2023-05-02] MEDS ORDERED: FUROSEMIDE 20 MG/2 ML VIAL IV ONE (16:30)
[2023-05-02] MEDS ORDERED: POTASSIUM EFFERVESENT TAB 25 MEQ GT ONE (16:30)
[2023-05-03] MEDS: ACCU-CHEK COMFORT CURVE STRIP VI SCH ×4 (00:52→18:48)
[2023-05-03 05:00] VITALS: BP 142/67
[2023-05-03 05:33] LABS: Hemoglobin 10.3 g/dL (12.2-16.2)
[2023-05-03 05:36] LABS: Hematocrit 30.6 % (36.0-46.0); Mean Corpuscular Hemoglobin 30.4 pg (28.0-32.0); Mean Corpuscular Hgb Conc. 33.7 g/dL (32.0-36.0); Mean Corpuscular Volume 90.2 fL (80.0-100.0); Red Blood Cells 3.39 10^6/uL (4.0-5.20); Red Cell Distribution Width 16.1 % (11.8-14.3); White Blood Cell 9.8 10^3/uL (4.4-10.8)
[2023-05-03 05:45] LABS: Basophils % (manual) 0 (0.0-2.0); Blast Cells 0; Eosinophils % (manual) 0 (0-7); Metamyelocytes % 0; Myelocytes % 0; Promyelocytes % 0; Reactive Lymphocytes 0
[2023-05-03 05:53] LABS: BUN/Creatinine Ratio 16.7 (10.0-20.0); Calcium 7.3 mg/dL (8.5-10.1); Potassium 3.4 mmol/L (3.5-5.1)
[2023-05-03] MEDS: InsuLIN REG 1unit/0.01ml Soln (100units/ml) SC SCH ×4 (06:00→18:48)
[2023-05-03] MEDS: MIDODRINE HCL 10 MG TAB PO SCH ×3 (06:00→18:48)
[2023-05-03] MEDS: D5W/SOD CHL 0.45%/KCL 20MEQ 1,000 ML IV SCH (06:03)
[2023-05-03] MEDS: D5W/SOD CHL 0.45%/KCL 40MEQ 1,000 ML IV SCH (07:44)
[2023-05-03] MEDS: POTASSIUM CHL 20MEQ/100ML 100 ML IV SCH ×2 (08:43→11:40)
[2023-05-03 09:00] VITALS: BP 124/61
[2023-05-03 09:07] LABS: Band Neutrophils % (manual) 3; Lymphocytes % (manual) 4 (10.0-50.0); Monocytes % (manual) 3 (0-12)
[2023-05-03] MEDS: CEFTRIAXONE SODIUM 2 GM in D5W 5% 100 ML IV SCH (09:34)
[2023-05-03] MEDS: LACOSAMIDE 100 MG in SODIUM CHL 0.9% 50 ML IV SCH ×2 (09:34→22:03)
[2023-05-03] MEDS: PANTOPRAZOLE 40 MG/10 ML VIAL INJ IV SCH (09:34)
[2023-05-03] MEDS: VANCOMYCIN 1GM/250ML 250 ML IV SCH (11:41)
[2023-05-03 13:00] VITALS: BP 151/62
[2023-05-03 17:00] VITALS: BP 152/66
[2023-05-03 22:00] VITALS: BP 139/53
[2023-05-04] MEDS: ACCU-CHEK COMFORT CURVE STRIP VI SCH ×4 (00:31→18:12)
[2023-05-04] MEDS: D5W/SOD CHL 0.45%/KCL 40MEQ 1,000 ML IV SCH (02:00)
[2023-05-04 05:00] VITALS: BP 154/77
[2023-05-04] MEDS: MIDODRINE HCL 10 MG TAB PO SCH ×3 (05:39→18:22)
[2023-05-04] MEDS: InsuLIN REG 1unit/0.01ml Soln (100units/ml) SC SCH ×4 (05:40→18:00)
[2023-05-04 09:00] VITALS: BP 90/53
[2023-05-04] MEDS: CEFTRIAXONE SODIUM 2 GM in D5W 5% 100 ML IV SCH (09:46)
[2023-05-04] MEDS: PANTOPRAZOLE 40 MG/10 ML VIAL INJ IV SCH (09:47)
[2023-05-04] MEDS: LACOSAMIDE 100 MG in SODIUM CHL 0.9% 50 ML IV SCH ×2 (10:54→22:00)
[2023-05-04] MEDS: VANCOMYCIN 1GM/250ML 250 ML IV SCH (11:58)
[2023-05-04 13:00] VITALS: BP 103/49
[2023-05-04 17:00] VITALS: BP 92/50
[2023-05-04 22:00] VITALS: BP 103/45
[2023-05-04] MEDS: METOCLOPRAMIDE 10 mg/10ml ORAL soln GT SCH (22:00)
[2023-05-05 05:00] VITALS: BP 101/47
[2023-05-05 06:07] LABS: Albumin 2.6 g/dL (3.4-5.0); BUN/Creatinine Ratio 24.7 (10.0-20.0); Calcium 7.4 mg/dL (8.5-10.1); Potassium 4.3 mmol/L (3.5-5.1)
[2023-05-05 06:10] LABS: Bilirubin, Total 0.7 mg/dL (0.2-1.0); Total Protein 5.4 g/dL (6.4-8.2)
[2023-05-05 06:36] LABS: Hematocrit 27.6 % (36.0-46.0); Hemoglobin 9.2 g/dL (12.2-16.2); Mean Corpuscular Hemoglobin 30.4 pg (28.0-32.0); Mean Corpuscular Hgb Conc. 33.2 g/dL (32.0-36.0); Mean Corpuscular Volume 91.5 fL (80.0-100.0); Red Blood Cells 3.02 10^6/uL (4.0-5.20); Red Cell Distribution Width 15.8 % (11.8-14.3); White Blood Cell 6.4 10^3/uL (4.4-10.8)
[2023-05-05 06:44] LABS: Basophils % (manual) 0 (0.0-2.0); Blast Cells 0; Eosinophils % (manual) 0 (0-7); Monocytes % (manual) 0 (0-12); Promyelocytes % 0; Reactive Lymphocytes 0
[2023-05-05 09:00] VITALS: BP 101/40
[2023-05-05 09:19] LABS: Band Neutrophils % (manual) 20; Lymphocytes % (manual) 3 (10.0-50.0); Metamyelocytes % 3; Myelocytes % 3
[2023-05-05 10:42] LABS: Hematocrit 28.9 % (36.0-46.0); Hemoglobin 9.5 g/dL (12.2-16.2)
[2023-05-05] MEDS: InsuLIN REG 1unit/0.01ml Soln (100units/ml) SC SCH ×3 (12:00→18:00)
[2023-05-05] MEDS: LACOSAMIDE 100 MG in SODIUM CHL 0.9% 50 ML IV SCH ×2 (12:05→21:36)
[2023-05-05] MEDS: METOCLOPRAMIDE 10 mg/10ml ORAL soln GT SCH ×2 (12:05→21:37)
[2023-05-05] MEDS: PANTOPRAZOLE 40 MG/10 ML VIAL INJ IV SCH (12:05)
[2023-05-05] MEDS: VANCOMYCIN 1GM/250ML 250 ML IV SCH (12:38)
[2023-05-05] MEDS: ACCU-CHEK COMFORT CURVE STRIP VI SCH ×4 (12:38→18:05)
[2023-05-05] MEDS: MIDODRINE HCL 10 MG TAB GT SCH ×2 (12:39→18:30)
[2023-05-05 13:00] VITALS: BP 95/45
[2023-05-05] MEDS: CEFTRIAXONE SODIUM 2 GM in D5W 5% 100 ML IV SCH (14:32)
[2023-05-05 16:00] LABS: Hematocrit 25.7 % (36.0-46.0); Hemoglobin 8.5 g/dL (12.2-16.2)
[2023-05-05] MEDS: D5W/SOD CHL 0.45%/KCL 40MEQ 1,000 ML IV SCH (18:31)
[2023-05-05 21:32] LABS: Hematocrit 24.3 % (36.0-46.0); Hemoglobin 8.2 g/dL (12.2-16.2)
[2023-05-05 22:00] VITALS: BP 121/53
[2023-05-06] MEDS: HALOPERIDOL LACTATE 5 MG/ML INJ VIAL IM PRN (04:23)
[2023-05-06 05:00] VITALS: BP 101/48
[2023-05-06] MEDS: ACCU-CHEK COMFORT CURVE STRIP VI SCH ×4 (05:37→19:09)
[2023-05-06] MEDS: InsuLIN REG 1unit/0.01ml Soln (100units/ml) SC SCH ×4 (05:43→18:00)
[2023-05-06] MEDS: MIDODRINE HCL 10 MG TAB GT SCH ×3 (05:45→19:14)
[2023-05-06 06:04] LABS: Hematocrit 25.4 % (36.0-46.0); Hemoglobin 8.7 g/dL (12.2-16.2); Mean Corpuscular Hemoglobin 30.8 pg (28.0-32.0); Mean Corpuscular Hgb Conc. 34.2 g/dL (32.0-36.0); Red Blood Cells 2.82 10^6/uL (4.0-5.20); Red Cell Distribution Width 16.1 % (11.8-14.3)
[2023-05-06 06:27] LABS: Basophils % (manual) 0 (0.0-2.0); Blast Cells 0; Eosinophils % (manual) 0 (0-7); Metamyelocytes % 0; Monocytes % (manual) 0 (0-12); Myelocytes % 0; Promyelocytes % 0; Reactive Lymphocytes 0
[2023-05-06 09:00] VITALS: BP 149/70
[2023-05-06 09:05] LABS: INR 1.23 (0.9-1.15); Partial Thromboplastin Time 32.4 sec (24.6-33.4)
[2023-05-06] MEDS: PANTOPRAZOLE 40 MG/10 ML VIAL INJ IV SCH (09:52)
[2023-05-06] MEDS: CEFTRIAXONE SODIUM 2 GM in D5W 5% 100 ML IV SCH (09:52)
[2023-05-06] MEDS: METOCLOPRAMIDE 10 mg/10ml ORAL soln GT SCH (09:53)
[2023-05-06] MEDS: LACOSAMIDE 100 MG in SODIUM CHL 0.9% 50 ML IV SCH ×2 (09:54→22:13)
[2023-05-06] MEDS ORDERED: FUROSEMIDE 20 MG/2 ML VIAL IV ONE (10:15)
[2023-05-06] MEDS ORDERED: POTASSIUM EFFERVESENT TAB 25 MEQ PO ONE (10:15)
[2023-05-06] MEDS: VANCOMYCIN 1GM/250ML 250 ML IV SCH (11:00)
[2023-05-06 11:05] LABS: Band Neutrophils % (manual) 1; Lymphocytes % (manual) 9 (10.0-50.0)
[2023-05-06 13:00] VITALS: BP 122/67
[2023-05-06 17:00] VITALS: BP 98/43
[2023-05-06 22:01] VITALS: BP 111/51
[2023-05-07] MEDS: ACCU-CHEK COMFORT CURVE STRIP VI SCH ×4 (00:10→17:39)
[2023-05-07 05:00] VITALS: BP 126/58
[2023-05-07] MEDS: InsuLIN REG 1unit/0.01ml Soln (100units/ml) SC SCH ×5 (05:05→23:59)
[2023-05-07] MEDS: MIDODRINE HCL 10 MG TAB GT SCH ×3 (06:00→17:38)
[2023-05-07 09:00] VITALS: BP 121/50
[2023-05-07] MEDS ORDERED: POTASSIUM EFFERVESENT TAB 25 MEQ PO SCH (10:00)
[2023-05-07] MEDS ORDERED: FUROSEMIDE 20 MG TAB PO SCH (10:00)
[2023-05-07] MEDS: LACOSAMIDE 100 MG in SODIUM CHL 0.9% 50 ML IV SCH ×2 (11:14→22:12)
[2023-05-07] MEDS: PANTOPRAZOLE 40 MG/10 ML VIAL INJ IV SCH (11:15)
[2023-05-07] MEDS: CEFTRIAXONE SODIUM 2 GM in D5W 5% 100 ML IV SCH (12:22)
[2023-05-07 12:50] VITALS: BP 100/40
[2023-05-07 17:00] VITALS: BP 128/56
[2023-05-07 22:00] VITALS: BP 117/46
[2023-05-08 05:00] VITALS: BP 119/48
[2023-05-08 05:59] LABS: Hematocrit 26.9 % (36.0-46.0); Mean Corpuscular Hemoglobin 30.2 pg (28.0-32.0); Mean Corpuscular Hgb Conc. 33.5 g/dL (32.0-36.0); Mean Corpuscular Volume 90.3 fL (80.0-100.0); Red Blood Cells 2.97 10^6/uL (4.0-5.20); Red Cell Distribution Width 16.4 % (11.8-14.3); White Blood Cell 7.5 10^3/uL (4.4-10.8)
[2023-05-08 06:22] LABS: Basophils % (manual) 0 (0.0-2.0); Blast Cells 0; Eosinophils % (manual) 0 (0-7); Metamyelocytes % 0; Myelocytes % 0; Potassium 4.6 mmol/L (3.5-5.1); Promyelocytes % 0; Reactive Lymphocytes 0
[2023-05-08 06:28] LABS: BUN/Creatinine Ratio 20.9 (10.0-20.0); Calcium 7.7 mg/dL (8.5-10.1)
[2023-05-08] MEDS: ACCU-CHEK COMFORT CURVE STRIP VI SCH ×4 (06:33→18:00)
[2023-05-08] MEDS: MIDODRINE HCL 10 MG TAB GT SCH ×3 (06:33→17:29)
[2023-05-08] MEDS: InsuLIN REG 1unit/0.01ml Soln (100units/ml) SC SCH ×3 (06:37→18:00)
[2023-05-08 07:31] LABS: Band Neutrophils % (manual) 1; Lymphocytes % (manual) 8 (10.0-50.0); Monocytes % (manual) 4 (0-12)
[2023-05-08 08:34] VITALS: BP 108/46
[2023-05-08] MEDS ORDERED: Jevity 1.2 Cal/Fiber 1 Liter GT SCH (11:15)
[2023-05-08] MEDS: PANTOPRAZOLE 40 MG/10 ML VIAL INJ IV SCH (11:32)
[2023-05-08] MEDS: LACOSAMIDE 100 MG in SODIUM CHL 0.9% 50 ML IV SCH ×2 (11:33→22:23)
[2023-05-08] MEDS: CEFTRIAXONE SODIUM 2 GM in D5W 5% 100 ML IV SCH (11:34)
[2023-05-08 13:00] VITALS: BP 133/53
[2023-05-08] MEDS: D5W/SOD CHL 0.2% 1,000 ML IV SCH (13:01)
[2023-05-08 16:54] VITALS: BP 117/66
[2023-05-08] MEDS ORDERED: LORazepam 2MG/ML-1ML VIAL IV ONE (18:00)
[2023-05-08 22:00] VITALS: BP 113/53
[2023-05-09] MEDS: ACCU-CHEK COMFORT CURVE STRIP VI SCH ×4 (00:41→18:00)
[2023-05-09 05:00] VITALS: BP 119/45
[2023-05-09] MEDS: MIDODRINE HCL 10 MG TAB GT SCH ×3 (05:30→18:00)
[2023-05-09] MEDS: InsuLIN REG 1unit/0.01ml Soln (100units/ml) SC SCH ×4 (05:38→18:00)
[2023-05-09] MEDS: D5W/SOD CHL 0.2% 1,000 ML IV SCH (07:15)
[2023-05-09 08:55] VITALS: BP 116/48
[2023-05-09] MEDS: LACOSAMIDE 100 MG in SODIUM CHL 0.9% 50 ML IV SCH ×2 (10:00→22:53)
[2023-05-09] MEDS: PANTOPRAZOLE 40 MG/10 ML VIAL INJ IV SCH (10:00)
[2023-05-09] MEDS: CEFTRIAXONE SODIUM 2 GM in D5W 5% 100 ML IV SCH (10:00)
[2023-05-09 13:00] VITALS: BP 105/54
[2023-05-09] MEDS ORDERED: GLUCAGON EMERG KIT 1mg/1ml IM ONE (13:00)
[2023-05-09 17:00] VITALS: BP 111/70
[2023-05-09 21:02] LABS: BUN/Creatinine Ratio 20.4 (10.0-20.0); Calcium 7.8 mg/dL (8.5-10.1); Potassium 4.1 mmol/L (3.5-5.1)
[2023-05-09 22:00] VITALS: BP 127/57
[2023-05-09 22:01] LABS: Hemoglobin 9.7 g/dL (12.2-16.2); Mean Corpuscular Hemoglobin 30.9 pg (28.0-32.0); Mean Corpuscular Hgb Conc. 33.5 g/dL (32.0-36.0); Mean Corpuscular Volume 92.4 fL (80.0-100.0); Red Blood Cells 3.14 10^6/uL (4.0-5.20); Red Cell Distribution Width 16.3 % (11.8-14.3); White Blood Cell 9.2 10^3/uL (4.4-10.8)
[2023-05-09 22:06] LABS: Basophils % (manual) 0 (0.0-2.0); Blast Cells 0; Eosinophils % (manual) 0 (0-7); Metamyelocytes % 0; Myelocytes % 0; Promyelocytes % 0; Reactive Lymphocytes 0
[2023-05-09 22:43] LABS: Band Neutrophils % (manual) 3; Lymphocytes % (manual) 9 (10.0-50.0); Monocytes % (manual) 1 (0-12)
[2023-05-09] MEDS: ONDANSETRON HCL 4 MG/2 ML VIAL IV PRN (22:53)
[2023-05-10] MEDS: D5W/SOD CHL 0.2% 1,000 ML IV SCH (02:53)
[2023-05-10 05:00] VITALS: BP 101/52
[2023-05-10] MEDS: InsuLIN REG 1unit/0.01ml Soln (100units/ml) SC SCH ×4 (05:23→17:23)
[2023-05-10] MEDS: ACCU-CHEK COMFORT CURVE STRIP VI SCH ×4 (05:23→17:23)
[2023-05-10] MEDS: MIDODRINE HCL 10 MG TAB GT SCH ×2 (06:03→10:37)
[2023-05-10] MEDS: ONDANSETRON HCL 4 MG/2 ML VIAL IV PRN (06:04)
[2023-05-10 07:30] VITALS: BP 121/50
[2023-05-10] MEDS: CEFTRIAXONE SODIUM 2 GM in D5W 5% 100 ML IV SCH (10:36)
[2023-05-10] MEDS: PANTOPRAZOLE 40 MG/10 ML VIAL INJ IV SCH (10:36)
[2023-05-10] MEDS ORDERED: PPN PER PHARMACY 0 ML IV SCH (10:45)
[2023-05-10 12:00] VITALS: BP 121/59
[2023-05-10 13:51] LABS: Albumin 2.7 g/dL (3.4-5.0); Calcium 7.4 mg/dL (8.5-10.1)
[2023-05-10 13:55] LABS: BUN/Creatinine Ratio 22.4 (10.0-20.0); Phosphorus 3.6 mg/dL (2.5-4.90)
[2023-05-10] MEDS: LACOSAMIDE 100 MG in SODIUM CHL 0.9% 50 ML IV SCH ×2 (14:23→21:58)
[2023-05-10 16:00] VITALS: BP 114/65
[2023-05-10] MEDS ORDERED: VANCOMYCIN 500 MG in D5W 5% 100 ML IV ONE (17:00)
[2023-05-10] MEDS: AMINO ACID INFUSION IN D10W 1,000 ML IV NR (20:11)
[2023-05-10 22:00] VITALS: BP 129/64
[2023-05-11] MEDS: D5W/SOD CHL 0.2% 1,000 ML IV SCH ×2 (00:22→17:55)
[2023-05-11] MEDS: ACCU-CHEK COMFORT CURVE STRIP VI SCH ×4 (00:22→17:52)
[2023-05-11 05:00] VITALS: BP 110/53
[2023-05-11] MEDS: InsuLIN REG 1unit/0.01ml Soln (100units/ml) SC SCH ×4 (05:33→17:55)
[2023-05-11 05:36] LABS: Hematocrit 26.3 % (36.0-46.0); Hemoglobin 8.8 g/dL (12.2-16.2); Mean Corpuscular Hemoglobin 31.2 pg (28.0-32.0); Mean Corpuscular Hgb Conc. 33.5 g/dL (32.0-36.0); Mean Corpuscular Volume 93.2 fL (80.0-100.0); Red Blood Cells 2.82 10^6/uL (4.0-5.20); Red Cell Distribution Width 16.6 % (11.8-14.3); White Blood Cell 6.4 10^3/uL (4.4-10.8)
[2023-05-11 06:04] LABS: Potassium 3.9 mmol/L (3.5-5.1)
[2023-05-11 06:14] LABS: Albumin 2.7 g/dL (3.4-5.0); Bilirubin, Total 0.5 mg/dL (0.2-1.0); Calcium 7.2 mg/dL (8.5-10.1); Phosphorus 3.5 mg/dL (2.5-4.90); Total Protein 5.5 g/dL (6.4-8.2)
[2023-05-11 06:31] LABS: Basophils % (manual) 0 (0.0-2.0); Blast Cells 0; Eosinophils % (manual) 0 (0-7); Metamyelocytes % 0; Myelocytes % 0; Promyelocytes % 0; Reactive Lymphocytes 0
[2023-05-11 07:30] VITALS: BP 121/50
[2023-05-11] MEDS: PANTOPRAZOLE 40 MG/10 ML VIAL INJ IV SCH (08:35)
[2023-05-11] MEDS: CEFTRIAXONE SODIUM 2 GM in D5W 5% 100 ML IV SCH (08:35)
[2023-05-11 09:00] VITALS: BP 107/51
[2023-05-11] MEDS: LACOSAMIDE 100 MG in SODIUM CHL 0.9% 50 ML IV SCH ×2 (10:58→22:05)
[2023-05-11] MEDS ORDERED: CALCIUM GLUC 1,000mg/50ml-NS 50 ML IV ONE (12:30)
[2023-05-11 13:00] VITALS: BP 159/54
[2023-05-11 14:00] LABS: Band Neutrophils % (manual) 2; Lymphocytes % (manual) 8 (10.0-50.0); Monocytes % (manual) 2 (0-12)
[2023-05-11 17:00] VITALS: BP 151/58
[2023-05-11] MEDS: VANCOMYCIN 500 MG in D5W 5% 100 ML IV SCH (17:48)
[2023-05-11] MEDS: AMINO ACID INFUSION IN D10W 1,000 ML IV NR (19:49)
[2023-05-11] MEDS ORDERED: PPN PER PHARMACY IV NR ×10 (20:00)
[2023-05-11 22:00] VITALS: BP 119/61
[2023-05-12] MEDS: D5W/SOD CHL 0.2% 1,000 ML IV SCH (02:59)
[2023-05-12 04:39] LABS: Albumin 2.5 g/dL (3.4-5.0); Calcium 7.2 mg/dL (8.5-10.1); Magnesium 1.4 mg/dL (1.6-2.6); Potassium 3.4 mmol/L (3.5-5.1)
[2023-05-12 04:42] LABS: BUN/Creatinine Ratio 30.2 (10.0-20.0)
[2023-05-12 04:45] LABS: Bilirubin, Total 0.5 mg/dL (0.2-1.0); Phosphorus 2.8 mg/dL (2.5-4.90); Total Protein 5.9 g/dL (6.4-8.2)
[2023-05-12 05:00] VITALS: BP 128/63
[2023-05-12] MEDS: InsuLIN REG 1unit/0.01ml Soln (100units/ml) SC SCH ×4 (05:39→17:14)
[2023-05-12] MEDS: ACCU-CHEK COMFORT CURVE STRIP VI SCH ×4 (05:39→17:14)
[2023-05-12] MEDS ORDERED: POTASSIUM CHL 20MEQ/100ML 100 ML IV SCH (08:30)
[2023-05-12 09:00] VITALS: BP 116/65
[2023-05-12] MEDS: MAGNESIUM SULFATE 1GM/100ML 100 ML IV SCH ×2 (09:22→10:51)
[2023-05-12] MEDS: D5W/SOD CHL 0.45%/KCL 40MEQ 1,000 ML IV SCH (09:22)
[2023-05-12] MEDS: CEFTRIAXONE SODIUM 2 GM in D5W 5% 100 ML IV SCH (09:29)
[2023-05-12] MEDS: PANTOPRAZOLE 40 MG/10 ML VIAL INJ IV SCH (09:35)
[2023-05-12 10:21] LABS: Basophils # (auto) 0 10 ^3/uL (0-0.2); Basophils % (auto) 0.1 % (0.0-2.0); Eosinophils # (auto) 0 10 ^3/uL (0-0.8); Eosinophils % (auto) 0.1 % (0.0-7.0); Hematocrit 27.2 % (36.0-46.0); Lymphocytes # (auto) 0.4 10 ^3/uL (0.4-5.4); Mean Corpuscular Hemoglobin 30.5 pg (28.0-32.0); Mean Corpuscular Volume 92.3 fL (80.0-100.0); Monocytes # (auto) 0.3 10 ^3/uL (0-1.3); Monocytes % (auto) 4.1 % (0.0-12.0); Neutrophils # (auto) 7.1 10 ^3/uL (1.6-8.6); Neutrophils % (auto) 90.7 % (37.0-80.0); Nucleated Red Blood Cells % 0.1 %; Red Blood Cells 2.95 10^6/uL (4.0-5.20); Red Cell Distribution Width 16.2 % (11.8-14.3); White Blood Cell 7.8 10^3/uL (4.4-10.8)
[2023-05-12] MEDS: POTASSIUM CHL 20MEQ/100ML 100 ML IV SCH ×2 (10:49→12:56)
[2023-05-12] MEDS: LACOSAMIDE 100 MG in SODIUM CHL 0.9% 50 ML IV SCH ×2 (11:54→21:54)
[2023-05-12 13:00] VITALS: BP 142/53
[2023-05-12] MEDS ORDERED: CALCIUM GLUC 1,000mg/50ml-NS 50 ML IV ONE (15:00)
[2023-05-12 17:00] VITALS: BP 138/60
[2023-05-12] MEDS: VANCOMYCIN 500 MG in D5W 5% 100 ML IV SCH (17:14)
[2023-05-12] MEDS ORDERED: PPN PER PHARMACY IV NR ×9 (20:00)
[2023-05-12 22:00] VITALS: BP 109/59
[2023-05-13] MEDS: ACCU-CHEK COMFORT CURVE STRIP VI SCH ×4 (00:07→16:59)
[2023-05-13] MEDS: D5W/SOD CHL 0.45%/KCL 40MEQ 1,000 ML IV SCH ×2 (04:30→15:38)
[2023-05-13 05:00] VITALS: BP 160/74
[2023-05-13] MEDS: InsuLIN REG 1unit/0.01ml Soln (100units/ml) SC SCH ×4 (05:35→17:30)
[2023-05-13 07:43] LABS: Hematocrit 27.3 % (36.0-46.0); Mean Corpuscular Hemoglobin 31.1 pg (28.0-32.0); Mean Corpuscular Hgb Conc. 33.1 g/dL (32.0-36.0); Mean Corpuscular Volume 93.7 fL (80.0-100.0); Red Blood Cells 2.91 10^6/uL (4.0-5.20); Red Cell Distribution Width 16.1 % (11.8-14.3); White Blood Cell 9.2 10^3/uL (4.4-10.8)
[2023-05-13 08:12] LABS: Albumin 2.4 g/dL (3.4-5.0); Calcium 7.4 mg/dL (8.5-10.1); Magnesium 2.4 mg/dL (1.6-2.6); Potassium 3.9 mmol/L (3.5-5.1)
[2023-05-13 08:15] LABS: Bilirubin, Total 0.4 mg/dL (0.2-1.0); Phosphorus 2.3 mg/dL (2.5-4.90); Total Protein 5.9 g/dL (6.4-8.2)
[2023-05-13 08:22] LABS: Band Neutrophils % (manual) 0; Basophils % (manual) 0 (0.0-2.0); Blast Cells 0; Metamyelocytes % 0; Myelocytes % 0; Promyelocytes % 0; Reactive Lymphocytes 0
[2023-05-13 08:30] VITALS: BP 161/53
[2023-05-13 09:00] VITALS: BP 161/53
[2023-05-13] MEDS: PANTOPRAZOLE 40 MG/10 ML VIAL INJ IV SCH (10:26)
[2023-05-13] MEDS: CEFTRIAXONE SODIUM 2 GM in D5W 5% 100 ML IV SCH (10:32)
[2023-05-13] MEDS ORDERED: TPN PER PHARMACY 0 ML IV SCH (10:45)
[2023-05-13] MEDS: LACOSAMIDE 100 MG in SODIUM CHL 0.9% 50 ML IV SCH (11:44)
[2023-05-13 13:00] VITALS: BP 158/60
[2023-05-13 13:58] LABS: Eosinophils % (manual) 1 (0-7); Lymphocytes % (manual) 4 (10.0-50.0); Monocytes % (manual) 2 (0-12)
[2023-05-13] MEDS ORDERED: SODIUM PHOSPHATES 24 MEQ in SODIUM CHL 0.9% 100 ML IV ONE (14:00)
[2023-05-13] MEDS ORDERED: CALCIUM GLUC 1,000mg/50ml-NS 50 ML IV ONE (14:15)
[2023-05-13 15:04] LABS: INR 1.14 (0.9-1.15); Partial Thromboplastin Time 34.2 SEC (24.5-34.5)
[2023-05-13] MEDS: ONDANSETRON HCL 4 MG/2 ML VIAL IV PRN (15:52)
[2023-05-13] MEDS: VANCOMYCIN 500 MG in D5W 5% 100 ML IV SCH (16:58)
[2023-05-13 17:00] VITALS: BP 157/56
[2023-05-13] MEDS ORDERED: PPN PER PHARMACY IV NR ×7 (20:00)
[2023-05-13 22:00] VITALS: BP 153/56
[2023-05-14] MEDS: ACCU-CHEK COMFORT CURVE STRIP VI SCH ×5 (00:20→23:55)
[2023-05-14] MEDS: LACOSAMIDE 100 MG in SODIUM CHL 0.9% 50 ML IV SCH ×3 (00:21→21:47)
[2023-05-14 05:00] VITALS: BP 156/55
[2023-05-14] MEDS: InsuLIN REG 1unit/0.01ml Soln (100units/ml) SC SCH ×5 (06:00→23:55)
[2023-05-14 06:32] LABS: Potassium 3.7 mmol/L (3.5-5.1)
[2023-05-14 06:38] LABS: Albumin 2.4 g/dL (3.4-5.0); BUN/Creatinine Ratio 36.6 (10.0-20.0); Bilirubin, Total 0.4 mg/dL (0.2-1.0); Calcium 7.2 mg/dL (8.5-10.1); Phosphorus 4.6 mg/dL (2.5-4.90); Total Protein 5.7 g/dL (6.4-8.2)
[2023-05-14 06:39] LABS: Magnesium 2.1 mg/dL (1.6-2.6)
[2023-05-14 07:22] LABS: Basophils # (auto) 0 10 ^3/uL (0-0.2); Basophils % (auto) 0.3 % (0.0-2.0); Eosinophils # (auto) 0 10 ^3/uL (0-0.8); Eosinophils % (auto) 0.2 % (0.0-7.0); Hematocrit 25.8 % (36.0-46.0); Hemoglobin 8.7 g/dL (12.2-16.2); Lymphocytes # (auto) 0.4 10 ^3/uL (0.4-5.4); Mean Corpuscular Hemoglobin 30.5 pg (28.0-32.0); Mean Corpuscular Hgb Conc. 33.6 g/dL (32.0-36.0); Mean Corpuscular Volume 90.8 fL (80.0-100.0); Monocytes # (auto) 0.4 10 ^3/uL (0-1.3); Monocytes % (auto) 3.9 % (0.0-12.0); Neutrophils # (auto) 9.8 10 ^3/uL (1.6-8.6); Neutrophils % (auto) 91.6 % (37.0-80.0); Nucleated Red Blood Cells % 0.2 %; Red Blood Cells 2.84 10^6/uL (4.0-5.20); Red Cell Distribution Width 16.1 % (11.8-14.3); White Blood Cell 10.7 10^3/uL (4.4-10.8)
[2023-05-14] MEDS ORDERED: ceFAZolin 1GM/50ML 50 ML IV ONE (07:45)
[2023-05-14 08:00] VITALS: BP 146/56
[2023-05-14] MEDS: PANTOPRAZOLE 40 MG/10 ML VIAL INJ IV SCH (10:36)
[2023-05-14] MEDS: CEFTRIAXONE SODIUM 2 GM in D5W 5% 100 ML IV SCH (10:36)
[2023-05-14] MEDS ORDERED: CALCIUM GLUC 1,000mg/50ml-NS 50 ML IV ONE (11:15)
[2023-05-14] MEDS: HALOPERIDOL LACTATE 5 MG/ML INJ VIAL IM PRN (11:39)
[2023-05-14 12:00] VITALS: BP 140/51
[2023-05-14] MEDS ORDERED: LIDOCAINE 1% (LOCAL ANESTH.) PF 5ml SDV ID ONE (12:30)
[2023-05-14 16:00] VITALS: BP 153/54
[2023-05-14] MEDS: VANCOMYCIN 500 MG in D5W 5% 100 ML IV SCH (17:40)
[2023-05-14] MEDS ORDERED: TPN PER PHARMACY IV NR ×9 (20:00)
[2023-05-14] MEDS ORDERED: PPN PER PHARMACY IV NR ×10 (20:00)
[2023-05-14 21:45] VITALS: BP 161/59
[2023-05-14] MEDS: SODIUM CHLOR 0.9% PF (SALINE LOCK) 10ML VIAL/SYR IV SCH (21:47)
[2023-05-14] MEDS: D5W/SOD CHL 0.45%/KCL 40MEQ 1,000 ML IV SCH (21:49)
[2023-05-15 04:35] VITALS: BP 145/61
[2023-05-15] MEDS: InsuLIN REG 1unit/0.01ml Soln (100units/ml) SC SCH ×3 (06:00→18:00)
[2023-05-15] MEDS: ACCU-CHEK COMFORT CURVE STRIP VI SCH ×3 (06:28→18:28)
[2023-05-15 07:02] LABS: Basophils # (auto) 0 10 ^3/uL (0-0.2); Basophils % (auto) 0.2 % (0.0-2.0); Eosinophils # (auto) 0 10 ^3/uL (0-0.8); Eosinophils % (auto) 0.1 % (0.0-7.0); Hemoglobin 7.7 g/dL (12.2-16.2); Lymphocytes # (auto) 0.4 10 ^3/uL (0.4-5.4); Monocytes # (auto) 0.5 10 ^3/uL (0-1.3); Red Cell Distribution Width 15.7 % (11.8-14.3)
[2023-05-15 07:06] LABS: Lymphocytes % (auto) 3.3 % (10.0-50.0); Mean Corpuscular Hemoglobin 30.9 pg (28.0-32.0); Mean Corpuscular Hgb Conc. 34.9 g/dL (32.0-36.0); Mean Corpuscular Volume 88.5 fL (80.0-100.0); Monocytes % (auto) 4.3 % (0.0-12.0); Neutrophils # (auto) 9.8 10 ^3/uL (1.6-8.6); Neutrophils % (auto) 92.1 % (37.0-80.0); Nucleated Red Blood Cells % 0.2 %; Red Blood Cells 2.49 10^6/uL (4.0-5.20); White Blood Cell 10.6 10^3/uL (4.4-10.8)
[2023-05-15 07:13] LABS: Potassium 3.5 mmol/L (3.5-5.1)
[2023-05-15 07:21] LABS: Urine Bacteria FEW /hpf (None Seen); Urine Blood 2+ /uL (Negative); Urine Mucus FEW (None Seen); Urine Specific Gravity 1.008 (1.001-1.035); Urine WBC 4 /hpf (0 - 5)
[2023-05-15 07:21] LABS: Albumin 2.2 g/dL (3.4-5.0); BUN/Creatinine Ratio 37.4 (10.0-20.0); Bilirubin, Total 0.5 mg/dL (0.2-1.0); Calcium 7.2 mg/dL (8.5-10.1); Magnesium 2.1 mg/dL (1.6-2.6); Phosphorus 3.1 mg/dL (2.5-4.90); Total Protein 5.5 g/dL (6.4-8.2)
[2023-05-15 08:00] VITALS: BP 167/52
[2023-05-15] MEDS ORDERED: POTASSIUM CHL 20MEQ/100ML 100 ML IV ONE ×2 (09:30→12:00)
[2023-05-15] MEDS ORDERED: FUROSEMIDE 20 MG/2 ML VIAL IV ONE (09:45)
[2023-05-15] MEDS: CEFTRIAXONE SODIUM 2 GM in D5W 5% 100 ML IV SCH (10:23)
[2023-05-15] MEDS: SODIUM CHLOR 0.9% PF (SALINE LOCK) 10ML VIAL/SYR IV SCH ×2 (10:24→22:35)
[2023-05-15] MEDS: PANTOPRAZOLE 40 MG/10 ML VIAL INJ IV SCH (10:24)
[2023-05-15 12:00] VITALS: BP 130/57
[2023-05-15] MEDS: LACOSAMIDE 100 MG in SODIUM CHL 0.9% 50 ML IV SCH ×2 (12:22→22:35)
[2023-05-15 16:00] VITALS: BP 152/50
[2023-05-15] MEDS: VANCOMYCIN 500 MG in D5W 5% 100 ML IV SCH (18:28)
[2023-05-15] MEDS ORDERED: TPN PER PHARMACY IV NR ×9 (20:00)
[2023-05-15 22:00] VITALS: BP 142/48
[2023-05-16] VITALS (8 sets, daily range): BP systolic 127–144; BP diastolic 44–55
[2023-05-16] MEDS: InsuLIN REG 1unit/0.01ml Soln (100units/ml) SC SCH ×4 (01:00→18:00)
[2023-05-16] MEDS: ACCU-CHEK COMFORT CURVE STRIP VI SCH ×4 (01:00→18:00)
[2023-05-16 09:03] LABS: Basophils # (auto) 0 10 ^3/uL (0-0.2); Basophils % (auto) 0.3 % (0.0-2.0); Eosinophils # (auto) 0 10 ^3/uL (0-0.8); Hematocrit 20.6 % (36.0-46.0); Lymphocytes # (auto) 0.4 10 ^3/uL (0.4-5.4); Monocytes # (auto) 0.6 10 ^3/uL (0-1.3); Neutrophils # (auto) 7.7 10 ^3/uL (1.6-8.6); Nucleated Red Blood Cells % 0.1 %; White Blood Cell 8.8 10^3/uL (4.4-10.8)
[2023-05-16 09:05] LABS: Eosinophils % (auto) 0.2 % (0.0-7.0); Lymphocytes % (auto) 4.8 % (10.0-50.0); Mean Corpuscular Hgb Conc. 33.4 g/dL (32.0-36.0); Mean Corpuscular Volume 89.7 fL (80.0-100.0); Monocytes % (auto) 7.3 % (0.0-12.0); Neutrophils % (auto) 87.4 % (37.0-80.0)
[2023-05-16 09:37] LABS: Albumin 2.2 g/dL (3.4-5.0); Calcium 6.8 mg/dL (8.5-10.1); Magnesium 2.1 mg/dL (1.6-2.6); Potassium 3.7 mmol/L (3.5-5.1)
[2023-05-16 09:40] LABS: BUN/Creatinine Ratio 40.9 (10.0-20.0); Bilirubin, Total 0.4 mg/dL (0.2-1.0); Phosphorus 2.3 mg/dL (2.5-4.90); Total Protein 5.5 g/dL (6.4-8.2)
[2023-05-16 09:43] LABS: Hemoglobin 6.9 g/dL (12.2-16.2)
[2023-05-16] MEDS ORDERED: FUROSEMIDE 20 MG/2 ML VIAL IV SCH (10:00)
[2023-05-16] MEDS ORDERED: POTASSIUM PHOSPHATE 22 MEQ in SODIUM CHL 0.9% 100 ML IV ONE (10:15)
[2023-05-16] MEDS: CEFTRIAXONE SODIUM 2 GM in D5W 5% 100 ML IV SCH (10:31)
[2023-05-16] MEDS: PANTOPRAZOLE 40 MG/10 ML VIAL INJ IV SCH (10:31)
[2023-05-16] MEDS: SODIUM CHLOR 0.9% PF (SALINE LOCK) 10ML VIAL/SYR IV SCH ×2 (10:32→22:56)
[2023-05-16] MEDS: LACOSAMIDE 100 MG in SODIUM CHL 0.9% 50 ML IV SCH ×2 (11:18→22:39)
[2023-05-16] MEDS: VANCOMYCIN 500 MG in D5W 5% 100 ML IV SCH (18:35)
[2023-05-16] MEDS ORDERED: TPN PER PHARMACY IV NR ×10 (20:00)
[2023-05-17] MEDS: ACCU-CHEK COMFORT CURVE STRIP VI SCH ×3 (01:51→11:39)
[2023-05-17] MEDS: InsuLIN REG 1unit/0.01ml Soln (100units/ml) SC SCH ×3 (01:54→11:40)
[2023-05-17 04:53] VITALS: BP 130/45
[2023-05-17 08:00] VITALS: BP 135/59
[2023-05-17 08:12] LABS: Hemoglobin 7.8 g/dL (12.2-16.2); Red Cell Distribution Width 15.8 % (11.8-14.3)
[2023-05-17 08:14] LABS: Hematocrit 23.1 % (36.0-46.0); Mean Corpuscular Hemoglobin 30.4 pg (28.0-32.0); Mean Corpuscular Hgb Conc. 33.8 g/dL (32.0-36.0); Mean Corpuscular Volume 90.1 fL (80.0-100.0); Red Blood Cells 2.56 10^6/uL (4.0-5.20); White Blood Cell 10.2 10^3/uL (4.4-10.8)
[2023-05-17 08:32] LABS: Albumin 2.2 g/dL (3.4-5.0); Calcium 7.2 mg/dL (8.5-10.1); Magnesium 2.1 mg/dL (1.6-2.6); Potassium 3.6 mmol/L (3.5-5.1)
[2023-05-17 08:33] LABS: BUN/Creatinine Ratio 42.4 (10.0-20.0); Phosphorus 2.8 mg/dL (2.5-4.90)
[2023-05-17 08:36] LABS: Basophils % (manual) 0 (0.0-2.0); Eosinophils % (manual) 0 (0-7); Metamyelocytes % 0
[2023-05-17 08:37] LABS: Blast Cells 0; Myelocytes % 0; Promyelocytes % 0; Reactive Lymphocytes 0
[2023-05-17 10:02] LABS: Band Neutrophils % (manual) 4; Lymphocytes % (manual) 8 (10.0-50.0); Monocytes % (manual) 10 (0-12)
[2023-05-17] MEDS: SODIUM CHLOR 0.9% PF (SALINE LOCK) 10ML VIAL/SYR IV SCH ×2 (10:08→22:00)
[2023-05-17] MEDS: PANTOPRAZOLE 40 MG/10 ML VIAL INJ IV SCH (10:08)
[2023-05-17 12:00] VITALS: BP 128/52
[2023-05-17] MEDS: LACOSAMIDE 100 MG in SODIUM CHL 0.9% 50 ML IV SCH ×2 (12:17→23:11)
[2023-05-17 16:00] VITALS: BP 116/52
[2023-05-17] MEDS: ONDANSETRON HCL 4 MG/2 ML VIAL IV PRN (17:20)
[2023-05-17] MEDS: MORPHINE SULFATE INJ 2 MG/ml SYRG IV PRN (17:21)
[2023-05-17] MEDS ORDERED: TPN PER PHARMACY IV NR ×11 (20:00)
[2023-05-17 22:00] VITALS: BP 129/52
[2023-05-18 05:00] VITALS: BP 125/55
[2023-05-18 06:45] LABS: BUN/Creatinine Ratio 42.7 (10.0-20.0); Potassium 4.1 mmol/L (3.5-5.1)
[2023-05-18 06:49] LABS: Basophils # (auto) 0 10 ^3/uL (0-0.2); Eosinophils # (auto) 0 10 ^3/uL (0-0.8); Eosinophils % (auto) 0.4 % (0.0-7.0); Hemoglobin 7.9 g/dL (12.2-16.2); Lymphocytes # (auto) 0.5 10 ^3/uL (0.4-5.4); Mean Corpuscular Volume 89.9 fL (80.0-100.0); Monocytes # (auto) 0.9 10 ^3/uL (0-1.3); Nucleated Red Blood Cells % 0.1 %
[2023-05-18 06:51] LABS: Basophils % (auto) 0.3 % (0.0-2.0); Hematocrit 23.3 % (36.0-46.0); Lymphocytes % (auto) 5.2 % (10.0-50.0); Mean Corpuscular Hemoglobin 30.3 pg (28.0-32.0); Mean Corpuscular Hgb Conc. 33.7 g/dL (32.0-36.0); Monocytes % (auto) 9.9 % (0.0-12.0); Neutrophils # (auto) 7.7 10 ^3/uL (1.6-8.6); Neutrophils % (auto) 84.2 % (37.0-80.0); Red Blood Cells 2.59 10^6/uL (4.0-5.20); Red Cell Distribution Width 15.7 % (11.8-14.3); White Blood Cell 9.1 10^3/uL (4.4-10.8)
[2023-05-18 08:28] VITALS: BP 147/52
[2023-05-18] MEDS: SODIUM CHLOR 0.9% PF (SALINE LOCK) 10ML VIAL/SYR IV SCH ×2 (09:15→22:45)
[2023-05-18] MEDS: PANTOPRAZOLE 40 MG/10 ML VIAL INJ IV SCH (09:15)
[2023-05-18] MEDS: ONDANSETRON HCL 4 MG/2 ML VIAL IV PRN (09:15)
[2023-05-18] MEDS: MORPHINE SULFATE INJ 2 MG/ml SYRG IV PRN (09:15)
[2023-05-18] MEDS: LACOSAMIDE 50 MG TAB PO SCH ×2 (10:34→22:25)
[2023-05-18 13:00] VITALS: BP 155/53
[2023-05-18 17:44] VITALS: BP 115/52
[2023-05-18 22:00] VITALS: BP 108/51
[2023-05-19 02:00] VITALS: BP 113/59
[2023-05-19] MEDS: MORPHINE SULFATE INJ 2 MG/ml SYRG IV PRN (03:46)
[2023-05-19 05:00] VITALS: BP 120/54
[2023-05-19] MEDS: PANTOPRAZOLE 40 MG/10 ML VIAL INJ IV SCH (08:53)
[2023-05-19] MEDS: SODIUM CHLOR 0.9% PF (SALINE LOCK) 10ML VIAL/SYR IV SCH ×2 (08:53→22:12)
[2023-05-19] MEDS: LACOSAMIDE 50 MG TAB PO SCH ×2 (08:54→22:12)
[2023-05-19 09:00] VITALS: BP 101/57
[2023-05-19] MEDS ORDERED: MILK OF MAGNESIA 30ML SUSP PO ONE (12:15)
[2023-05-19 13:00] VITALS: BP 111/56
[2023-05-19 17:52] VITALS: BP 116/59
[2023-05-20 05:00] VITALS: BP 105/57
[2023-05-20 09:05] LABS: Eosinophils # (auto) 0 10 ^3/uL (0-0.8); Eosinophils % (auto) 0.3 % (0.0-7.0); Hemoglobin 8.4 g/dL (12.2-16.2); Lymphocytes # (auto) 0.7 10 ^3/uL (0.4-5.4); Nucleated Red Blood Cells % 0.1 %
[2023-05-20 09:07] LABS: Basophils # (auto) 0 10 ^3/uL (0-0.2); Basophils % (auto) 0.4 % (0.0-2.0); Hematocrit 25.4 % (36.0-46.0); Lymphocytes % (auto) 7.1 % (10.0-50.0); Mean Corpuscular Hemoglobin 30.1 pg (28.0-32.0); Mean Corpuscular Hgb Conc. 33.3 g/dL (32.0-36.0); Mean Corpuscular Volume 90.6 fL (80.0-100.0); Monocytes % (auto) 10.6 % (0.0-12.0); Neutrophils # (auto) 7.4 10 ^3/uL (1.6-8.6); Neutrophils % (auto) 81.6 % (37.0-80.0); Red Cell Distribution Width 16.2 % (11.8-14.3); White Blood Cell 9.1 10^3/uL (4.4-10.8)
[2023-05-20 09:12] LABS: Potassium 4.7 mmol/L (3.5-5.1)
[2023-05-20 09:18] LABS: BUN/Creatinine Ratio 38.3 (10.0-20.0); Calcium 7.2 mg/dL (8.5-10.1)
[2023-05-20] MEDS: SODIUM CHLOR 0.9% PF (SALINE LOCK) 10ML VIAL/SYR IV SCH ×2 (09:30→22:02)
[2023-05-20] MEDS: PANTOPRAZOLE 40 MG/10 ML VIAL INJ IV SCH (09:30)
[2023-05-20] MEDS: LACOSAMIDE 50 MG TAB PO SCH ×2 (09:31→22:02)
[2023-05-20] MEDS ORDERED: LEVOTHYROXINE SODIUM 25 MCG TAB PO ONE (10:30)
[2023-05-20 22:00] VITALS: BP 113/61
[2023-05-21 05:00] VITALS: BP 114/54
[2023-05-21] MEDS: LEVOTHYROXINE SODIUM 25 MCG TAB PO SCH (06:19)
[2023-05-21 09:00] VITALS: BP 110/57
[2023-05-21] MEDS: LACOSAMIDE 50 MG TAB PO SCH ×2 (10:46→21:30)
[2023-05-21] MEDS: PANTOPRAZOLE 40 MG TAB PO SCH (10:46)
[2023-05-21] MEDS: SODIUM CHLOR 0.9% PF (SALINE LOCK) 10ML VIAL/SYR IV SCH ×2 (10:47→21:30)
[2023-05-21 13:00] VITALS: BP 116/49
[2023-05-21 17:00] VITALS: BP 118/50
[2023-05-21 21:54] VITALS: BP 98/44
[2023-05-22 05:00] VITALS: BP 94/48
[2023-05-22] MEDS: LEVOTHYROXINE SODIUM 25 MCG TAB PO SCH (06:16)
[2023-05-22 09:00] VITALS: BP 113/51
[2023-05-22] MEDS: LACOSAMIDE 50 MG TAB PO SCH ×2 (09:59→22:02)
[2023-05-22] MEDS: SODIUM CHLOR 0.9% PF (SALINE LOCK) 10ML VIAL/SYR IV SCH ×2 (10:00→22:02)
[2023-05-22] MEDS: PANTOPRAZOLE 40 MG TAB PO SCH (10:00)
[2023-05-22] MEDS: traMADol HCL 50 MG TAB PO PRN ×2 (11:08→23:10)
[2023-05-22 12:39] VITALS: BP 105/53
[2023-05-22 16:57] VITALS: BP 112/50
[2023-05-22 22:00] VITALS: BP 100/44
[2023-05-23 05:03] VITALS: BP 105/50
[2023-05-23] MEDS: LEVOTHYROXINE SODIUM 25 MCG TAB PO SCH (06:38)
[2023-05-23 09:10] VITALS: BP 99/48
[2023-05-23] MEDS: DOCUSATE SOD 100 MG CAP PO SCH ×2 (09:24→21:20)
[2023-05-23] MEDS: SODIUM CHLOR 0.9% PF (SALINE LOCK) 10ML VIAL/SYR IV SCH ×2 (09:25→21:20)
[2023-05-23] MEDS: LACOSAMIDE 50 MG TAB PO SCH ×2 (09:25→21:20)
[2023-05-23] MEDS: PANTOPRAZOLE 40 MG TAB PO SCH (09:25)
[2023-05-23 13:00] VITALS: BP_SYST 105; BP_SYST 110; BP_DIAS 69; BP_DIAS 72
[2023-05-23] MEDS: traMADol HCL 50 MG TAB PO PRN (14:20)
[2023-05-23 22:00] VITALS: BP 100/68
[2023-05-24 05:25] VITALS: BP 141/65
[2023-05-24 05:52] LABS: Basophils # (auto) 0 10 ^3/uL (0-0.2); Basophils % (auto) 0.4 % (0.0-2.0); Eosinophils # (auto) 0 10 ^3/uL (0-0.8); Eosinophils % (auto) 0.4 % (0.0-7.0); Hematocrit 27.8 % (36.0-46.0); Hemoglobin 9.1 g/dL (12.2-16.2); Lymphocytes # (auto) 0.7 10 ^3/uL (0.4-5.4); Lymphocytes % (auto) 8.2 % (10.0-50.0); Mean Corpuscular Hemoglobin 30.8 pg (28.0-32.0); Mean Corpuscular Hgb Conc. 32.9 g/dL (32.0-36.0); Mean Corpuscular Volume 93.7 fL (80.0-100.0); Monocytes # (auto) 0.6 10 ^3/uL (0-1.3); Monocytes % (auto) 6.8 % (0.0-12.0); Neutrophils # (auto) 7.1 10 ^3/uL (1.6-8.6); Neutrophils % (auto) 84.2 % (37.0-80.0); Red Blood Cells 2.97 10^6/uL (4.0-5.20); Red Cell Distribution Width 16.3 % (11.8-14.3); White Blood Cell 8.4 10^3/uL (4.4-10.8)
[2023-05-24 06:05] LABS: Calcium 7.1 mg/dL (8.5-10.1); Potassium 4.7 mmol/L (3.5-5.1)
[2023-05-24 06:13] LABS: BUN/Creatinine Ratio 30.6 (10.0-20.0)
[2023-05-24] MEDS: LEVOTHYROXINE SODIUM 25 MCG TAB PO SCH (06:41)
[2023-05-24 08:53] VITALS: BP 130/60
[2023-05-24 12:30] VITALS: BP 131/63
[2023-05-24] MEDS: PANTOPRAZOLE 40 MG TAB PO SCH (12:54)
[2023-05-24] MEDS: LACOSAMIDE 50 MG TAB PO SCH ×2 (12:54→22:29)
[2023-05-24] MEDS: DOCUSATE SOD 100 MG CAP PO SCH ×2 (12:54→22:29)
[2023-05-24] MEDS: SODIUM CHLOR 0.9% PF (SALINE LOCK) 10ML VIAL/SYR IV SCH ×2 (12:55→22:31)
[2023-05-24 17:08] VITALS: BP 129/66
[2023-05-24 22:00] VITALS: BP 131/63
[2023-05-25] MEDS: ONDANSETRON HCL 4 MG/2 ML VIAL IV PRN (01:21)
[2023-05-25 05:00] VITALS: BP 124/64
[2023-05-25] MEDS: LEVOTHYROXINE SODIUM 25 MCG TAB PO SCH (06:17)
[2023-05-25 09:00] VITALS: BP 125/56
[2023-05-25] MEDS: LACTULOSE 20Gm/30ML SOLN PO SCH (09:40)
[2023-05-25] MEDS: LACOSAMIDE 50 MG TAB PO SCH ×3 (09:40→22:10)
[2023-05-25] MEDS: DOCUSATE SOD 100 MG CAP PO SCH ×3 (09:40→22:10)
[2023-05-25] MEDS: PANTOPRAZOLE 40 MG TAB PO SCH (09:40)
[2023-05-25] MEDS: SODIUM CHLOR 0.9% PF (SALINE LOCK) 10ML VIAL/SYR IV SCH ×2 (09:42→22:09)
[2023-05-25 13:00] VITALS: BP 115/55
[2023-05-25 17:00] VITALS: BP 126/61
[2023-05-25 22:00] VITALS: BP 138/92
[2023-05-26 05:00] VITALS: BP 119/69
[2023-05-26] MEDS: LEVOTHYROXINE SODIUM 25 MCG TAB PO SCH (06:51)
[2023-05-26 09:00] VITALS: BP 118/59
[2023-05-26] MEDS: DOCUSATE SOD 100 MG CAP PO SCH (09:39)
[2023-05-26] MEDS: LACOSAMIDE 50 MG TAB PO SCH (09:39)
[2023-05-26] MEDS: LACTULOSE 20Gm/30ML SOLN PO SCH (09:39)
[2023-05-26] MEDS: SODIUM CHLOR 0.9% PF (SALINE LOCK) 10ML VIAL/SYR IV SCH (09:40)
[2023-05-26] MEDS: PANTOPRAZOLE 40 MG TAB PO SCH (09:40)
[2023-05-26 12:39] VITALS: BP 107/62
[2023-05-26 14:47] VITALS: BP 107/62
== END 2023-05-26 15:35 | DRG 720 ==
LOC: EDBD 21:00 → ER 21:03 → OVERFLOW 04-25 03:05 → ICU WEST 04-25 05:45 → TELE-CENTR 05-02 17:43 → CENTRAL 05-22 10:33
PROVIDERS: ADMIT Nurse Practitioner; ATTEND Internal Medicine
PROC: 5A1955Z Respiratory Ventilation, Greater than 96 Consecutive Hours (ICD-10-PCS; principal; 2023-04-25)
PROC: 0BH17EZ Insertion of Endotracheal Airway into Trachea, Via Natural or Artificial Opening (ICD-10-PCS; 2023-04-25)
PROC: 30233N1 Transfusion of Nonautologous Red Blood Cells into Peripheral Vein, Percutaneous Approach (ICD-10-PCS; 2023-04-25)
PROC: 30233R1 Transfusion of Nonautologous Platelets into Peripheral Vein, Percutaneous Approach (ICD-10-PCS; 2023-04-25)
PROC: 05HD33Z Insertion of Infusion Device into Right Cephalic Vein, Percutaneous Approach (ICD-10-PCS; 2023-05-09)
PROC: B54MZZA Ultrasonography of Right Upper Extremity Veins, Guidance (ICD-10-PCS; 2023-05-09)
PROC: 02HV33Z Insertion of Infusion Device into Superior Vena Cava, Percutaneous Approach (ICD-10-PCS; 2023-05-14)
PROC: B548ZZA Ultrasonography of Superior Vena Cava, Guidance (ICD-10-PCS; 2023-05-14)
DX: A41.50 Gram-negative sepsis, unspecified (principal); J96.01 Acute respiratory failure with hypoxia; N17.0 Acute kidney failure with tubular necrosis; J69.0 Pneumonitis due to inhalation of food and vomit; G93.41 Metabolic encephalopathy; R57.8 Other shock; R65.21 Severe sepsis with septic shock; I50.41 Acute combined systolic (congestive) and diastolic (congestive) heart failure; R18.8 Other ascites; S82.101A Unspecified fracture of upper end of right tibia, initial encounter for closed fracture; B19.20 Unspecified viral hepatitis C without hepatic coma; H54.7 Unspecified visual loss; E44.0 Moderate protein-calorie malnutrition; R68.0 Hypothermia, not associated with low environmental temperature; D61.818 Other pancytopenia; G93.1 Anoxic brain damage, not elsewhere classified; E87.0 Hyperosmolality and hypernatremia; S82.191A Other fracture of upper end of right tibia, initial encounter for closed fracture; S22.41XA Multiple fractures of ribs, right side, initial encounter for closed fracture; I13.0 Hypertensive heart and chronic kidney disease with heart failure and stage 1 through stage 4 chronic kidney disease, or unspecified chronic kidney disease; N18.31 Chronic kidney disease, stage 3a; G40.409 Other generalized epilepsy and epileptic syndromes, not intractable, without status epilepticus; S82.831A Other fracture of upper and lower end of right fibula, initial encounter for closed fracture; K21.9 Gastro-esophageal reflux disease without esophagitis; W18.39XA Other fall on same level, initial encounter; E87.6 Hypokalemia; N39.0 Urinary tract infection, site not specified; I21.A1 Myocardial infarction type 2; Z95.0 Presence of cardiac pacemaker; Z74.01 Bed confinement status; Z75.1 Person awaiting admission to adequate facility elsewhere; Z82.49 Family history of ischemic heart disease and other diseases of the circulatory system; Z82.5 Family history of asthma and other chronic lower respiratory diseases; Z86.73 Personal history of transient ischemic attack (TIA), and cerebral infarction without residual deficits; Z87.891 Personal history of nicotine dependence; Z88.8 Allergy status to other drugs, medicaments and biological substances; Z99.11 Dependence on respirator [ventilator] status; Z80.0 Family history of malignant neoplasm of digestive organs; Z79.899 Other long term (current) drug therapy; Y93.89 Activity, other specified; Y92.89 Other specified places as the place of occurrence of the external cause; Y99.8 Other external cause status; Z68.20 Body mass index [BMI] 20.0-20.9, adult; R64 Cachexia
CPT/HCPCS: 31500; 36415; 36430; 36556; 36569; 36600; 70450; 70490; 71045; 71250; 72125; 73560; 73590; 74018; 74176; 80048; 80053; 80061; 80069; 80202; 81001; 82805; 82962; 83010; 83036; 83605; 83615; 83735; 84100; 84155; 84165; 84443; 84478; 84484; 85007; 85014; 85018; 85025; 85027; 85045; 85610; 85730; 86038; 86703; 86706; 86803; 86850; 86880; 86900; 86901; 86920; 87040; 87070; 87077; 87081; 87086; 87088; 87186; 87205; 87340; 93005; 93306; 93926; 93971; 94002; 94003; 94640; 95819; 97110; 97116; 97163; 97530; 99291; C9113; C9254; G0378; J0171; J0696; J1447; J1815; J2185; J2250; J2405; J2543; J3480; J7060; P9047